=== PATIENT | male | born 1945 | race Caucasian/White ===

== ENCOUNTER → 2018-08-10 12:18 | Outpatient (CLI) | payer SELFPAY ==
--- NOTE | 2018-08-10 12:35 | CT_ITS ---
STUDY: CT CHEST WITHOUT CONTRAST REASON FOR EXAM: Male, 72 years old. Limited chest for calcium scoring ovary. RADIATION DOSAGE (If Supplied By Facility): CTDIvol = ( 12.19 ) mGy, DLP = ( 268.17 ) mGycm TECHNIQUE: Transaxial imaging was performed without the administration of intravenous contrast material. # of Images: 184 Individualized dose optimization techniques were used for this CT. COMPARISON: None. FINDINGS: A fine reticular nodular pattern is seen. A follow-up CT scan in 6 months is recommended for further evaluation. There is no demonstrated pleural abnormality. There are calcifications of the coronary arteries. Minimal degree of anterior pericardial thickening. There are multiple small lymph nodes within the mediastinum, which are normal in size and morphology most compatible with reactive lymph hyperplasia. Normal hilar regions. Normal unenhanced pulmonary arteries. There is atherosclerotic calcification of the aortic arch with tortuosity and elongation of the aortic arch and descending thoracic aorta. There are degenerative changes of the thoracic spine. There is no demonstrated abnormality of the visualized upper abdomen. CT/Limited Chest CT w/CCTA IMPRESSION: Fine reticular nodular pattern is seen in both lungs. A repeat CT scan of the thorax is recommended in 6 months. Electronically Signed: Marcelino Quinones MD at 13:34 EDT Tel [phone], Service support ,
[2018-08-10 12:37] VITALS: BP 150/51; PULSE 51; RESP 16; O2SAT 99; BMI 27.4
--- NOTE | 2018-08-10 19:15 | CCTA_ITS ---
Calcium Scoring Date of Study:: 08/10/18 Coronary Calcium Scoring: Coronary calcium score: 585 Conclusion: Coronary calcium score: 585 Results: The patient underwent high resolution CT imaging of the chest on 08/10/2018 with attention to the coronary arteries. The images were analyzed for the presence and extent of coronary artery calcification using specific coronary calcification quantification software. The patient was reported as tolerating the procedure well with no obvious adverse events. The coronary calcium score was reported at 585. This score, greater than 400, based upon pre-published reference tables, is indicative of extensive plaque burden and the high likelihood of at least one significant coronary stenosis greater than 50%. Impression: Coronary calcium score: 585 This note was generated with [employer] dictation software. It may contain incorrect words, spelling, and punctuation that were not noted in checking the note before signing.
== END ==
PROVIDERS: Family Provider Internal Medicine; PCP Internal Medicine; Referring Provider Internal Medicine; Visit Provider Internal Medicine
DX: E88.81 Metabolic syndrome and other insulin resistance (principal)
CPT/HCPCS: 75571; 76380

== ENCOUNTER → 2018-09-20 06:52 | Outpatient (CLI) | payer MEDICARE, BC, SELFPAY ==
--- NOTE | 2018-09-20 07:16 | ECHOD_ITS ---
Reason For Study: HYPERTENSION Procedure This was a 2D Doppler, Color Flow transthoracic echocardiogram. Exam performed in department. Left Ventricle Normal LV size. Mild concentric left ventricular hypertrophy. Left ventricular systolic function is normal. The estimated ejection fraction is 60 %. Stage 1 diastolic dysfunction. No regional wall motion abnormalities noted. Right Ventricle Normal RV size. Normal systolic function. Atria The left atrium is mildly enlarged. Normal right atrium. Mitral Valve Normal mitral valve. Tricuspid Valve Normal tricuspid valve. Mild tricuspid valve insufficiency. Pulmonary artery systolic pressure is 37 mmHg. Aortic Valve Normal aortic valve. Trisinus/trileaflet aortic valve. Pulmonic Valve Normal pulmonic valve. Great Vessels Normal aortic root. The pulmonary artery is normal size. Pericardium/Pleural No pericardial effusion. MMode/2D Measurements & Calculations LVIDd: 5.2 cm IVSd: 1.3 cm Ao root diam: 3.3 cm LVIDs: 3.6 cm LVPWd: 1.4 cm RVDd: 3.8 cm FS: 29.9 % LAV(MOD-bp): 66.9 ml LA A4 area: 20.7 cm2 LA dimension(2D): 4.2 cm LAV(MOD-bp) Indexed: 34.4 ml/m2 LAV(MOD-sp2): 64.4 ml LAV(MOD-sp4): 65.2 ml RA A4 area: 18.2 cm2 Time Measurements MV dec time: 0.24 sec Doppler Measurements & Calculations MV E max salbador: 75.8 cm/sec Lat Peak E' Salbador: 6.4 cm/sec Med Peak E' Salbador: 8.3 cm/sec MV A max salbador: 93.2 cm/sec E/E' lat: 11.9 E/E' med: 9.1 MV E/A: 0.81 Ao V2 max: 195.8 cm/sec LV V1 max: 152.2 cm/sec PA V2 max: 107.4 cm/sec Ao max P.4 mmHg LV V1 max P.3 mmHg TR max salbador: 285.2 cm/sec TR max P.9 mmHg Interpretation Summary Normal LV size. Left ventricular systolic function is normal. The estimated ejection fraction is 60 %. Stage 1 diastolic dysfunction. Mild concentric left ventricular hypertrophy. Mild tricuspid valve insufficiency. Ordering Physician: Carlitos Tapia Referring Physician: Alana Phelps Performed By: Aleja Key, MICKY, RVT
--- NOTE | 2018-09-20 14:45 | STRESSREP_ITS ---
Stress Test Report Exercise myocardial perfusion stress test. 73-year-old man with a history of abnormal calcium score. Stress protocol: Resting EKG demonstrates normal sinus rhythm with a rate of 63 bpm normal intervals are noted resting blood pressure is 134/62 mmHg. The patient exercised according to regular Umer protocol for total duration of 6 minutes the maximum heart rate attained was 121 bpm which was 81% of maximum predicted heart rate maximum workload was 7 metabolic equivalents. The patient maintained sinus rhythm throughout the recording. At rest there were no ST or T wave changes noted suggest ischemia at peak exercise upsloping EKG changes were noted with normally the criteria for ischemia. Occasional premature ventricular compl exes were noted. The resting blood pressure is 134/62 with a peak blood pressure 184/60 mmHg. There was moderate to severe dyspnea noted with expiratory wheezes peak exercise Myocardial perfusion protocol. 11.4 mCi of technetium 99m sestamibi was injected at rest. The patient exercised according to regular Umer protocol for 6 minutes. At peak exercise 33.7 mCi of technetium 99m sestamibi was injected stress images were obtained stress and rest images were reconstructed and compared in the short axis vertical long horizontal long axis. Gated images were also noted. Perfusion SPECT analysis: Review of the stress images demonstrate normal perfusion pattern noted in most areas of the myocardium the inferior wall on the stress images demonstrated mildly reduced perfusion however. This appeared to normalize on the resting images. The above may be suggestive of mild inferior ischemia present. Gated SPECT analysis: The gated ejection fraction is 57%. Conclusion: Mildly abnormal exercise myocardial perfusion stress test with mild inferior ischemia. Mild functional aerobic impairment noted. Preserved ejection fraction.
== END ==
PROVIDERS: Family Provider Internal Medicine; PCP Internal Medicine; Referring Provider Internal Medicine Cardiovascular Disease; Visit Provider Internal Medicine Cardiovascular Disease
DX: I25.119 Atherosclerotic heart disease of native coronary artery with unspecified angina pectoris (principal); R93.1 Abnormal findings on diagnostic imaging of heart and coronary circulation
CPT/HCPCS: 78452; 93017; 93306; A9500; A4216

== ENCOUNTER 2018-09-27 06:46 | Day surgery (SDC) | payer MEDICARE, BC, SELFPAY ==
[2018-09-01 09:59] VITALS: BMI 30.2
[2018-09-24 08:59] VITALS: BMI 30.2
--- NOTE | 2018-09-24 09:38 | RAD_ITS ---
STUDY: X-RAY CHEST REASON FOR EXAM: Male, 73 years old. Chest pain TECHNIQUE: Frontal and lateral views COMPARISON: None. FINDINGS: The lungs are clear and expanded. There is no demonstrated pleural abnormality. Normal size heart. Normal mediastinum and dwight. Normal visualized pulmonary arteries. Normal visualized aortic arch and descending thoracic aorta. Degenerative changes of the thoracic spine. Normal visualized ribs, clavicles, and shoulders. There is no demonstrated abnormality of the visualized soft tissue structures of the upper abdomen. RAD/Chest PA and Lateral IMPRESSION: Normal x-ray examination of the chest. Electronically Signed: Blayne Marte DO at 8:54 EST Tel [phone], Service support ,
[2018-09-24 10:28] LABS: Absolute Lymphocyte Count 2.02 X10^3/ul (0.83-4.51); Absolute Neutrophil Count 4.4 X10^3/uL (2.0-7.7); Basophil# 0.07 X10^3/uL; Basophil% 0.9 % (0-1); Eosinophil# 0.22 X10^3/uL; Eosinophils% 2.9 % (0-5); Hematocrit 44.2 % (40-54); Hemoglobin 14.4 g/dl (13.0-16.5); Lymphocyte # 2.02 X10^3/ul (4.0); Lymphocyte % 26.7 % (19-41); Mean Corp Hgb Conc 32.6 g/gl (32-36); Mean Corpuscular Hgb 26.9 pg (27.0-32.0); Mean Corpuscular Volume 82.6 fL (80-94); Mean Platelet Vol. 11.1 fl (6.2-12.0); Monocyte# 0.85 X10^3/uL; Monocyte% 11.2 % (0-10); Neutrophil # 4.38 X10^3/uL (2.7-7.7); Platelet Count 214 K/mm3 (150-450); RBC Distribution Width CV 14.3 % (11.6-14.6); RBC Distribution Width SD 43.3 fl (35.1-43.9); Red Blood Count 5.35 M/mm3 (4.6-6.2); White Blood Count 7.6 K/mm3 (4.4-11.0)
[2018-09-24 10:29] LABS: Prothrombin Time (Protime)PT. 12.7 SECONDS (11.7-14.9)
[2018-09-24 10:30] LABS: Partial Thromboplast Time 27.3 Seconds (24.1-36.2)
[2018-09-24 10:32] LABS: POSITIVE COUNT NO; POSITIVE DIFFERENTIAL NO; POSITIVE MORPHOLOGY NO
[2018-09-24 10:39] LABS: Anion Gap 8 (5-15); BUN 24 mg/dL (7-18); BUN/Creat Ratio 17.3 RATIO (10-20); Calcium,Total 9.2 mg/dL (8.5-10.1); Chloride 107 mmol/L (98-107); Creatinine, Serum 1.39 mg/dL (0.70-1.30); EST Glomerular Filtration Rate 54 mL/min (>60); Est Glom Filt Rate - Afr Amer 65 mL/min (>60); Estimated Creatinine Clearance 43.99 ml/min; Glucose 106 mg/dL (74-106); Potassium 4.2 mmol/L (3.5-5.1); Sodium Level 140 mmol/L (136-145)
--- NOTE | 2018-09-27 08:32 | CL.D_ITS ---
Patient Name: VIC LOCKWOOD Study Date: 09/27/2018 Performing: Carlitos Tapia MD Ht: 66 inches 168 cm : 1945 Wt: 187.6 lbs 85 kg Age: 73 Gender: male BSA: 1.95 PROCEDURE(S) PERFORMED HW85-PCF/COR/LV CLINICAL PROFILE AND INDICATIONS Indications: Suspected CAD Heart Failure: None Stress/Imaging Cardiac CTA: Yes Result: 1VDCardiac CTA: 1VD CAD Presentations: No Sxs, no angina. CONCLUSIONS Non obstructive coronary arteries RECOMMENDATIONS Medical therapy DESCRIPTION OF PROCEDURE The patient arrived to the procedure lab. The risks and benefits of the procedure as well as a full d escription of our services here and current unavailability of surgical backup were fully explained to the patient and/or their significant other prior to the catheterization. The Timeout was completed, verifying the correct patient and procedure. The patient's procedural site was prepped and draped in the usual fashion. Local anesthetic was given subcutaneously to right radial region with Lidocaine 2% . Using a modified Seldinger technique, arterial access was obtained via the right radial artery, a 6 Fr sheath was inserted. Left Coronary Artery selective angiography was performed in multiple views u sing a 5 Fr. 4.0 [place] catheter. Right Coronary Artery selective angiography was then performed in mu ltiple views using a 5 Fr. 4.0 [place] catheter. Left Ventriculography was performed in PIERCE projection using a 5 Fr. [place] catheter. LV to AO pullback pressures were then recorded.The arterial sheath was pulled and a TR Band was applied for hemostasis 15cc of air CORONARY ANGIOGRAPHY DOMINANCE: Left Dominant LEFT HEART ASSESSMENT Left Ventricular Ejection Fraction: by LV Gram 55 % Normal LV wall motion Normal Left Ventricular systolic function LEFT MAIN: Angiographically normal LEFT ANTERIOR DECENDING ARTERY: Mild luminal irregularities PROX LAD: Moderate calcification CIRCUMFLEX ARTERY: Mild luminal irregularities RIGHT CORONARY ARTERY: Non-obstructive COMPLICATIONS No Complications PROCEDURE MEDICATIONS Versed 1 mg IV Fentanyl 50 mcg IV Versed 1 mg IV Oxygen: 2 L/min via nasal cannula Heparin diluted in 23cc Heparinized saline. Patient given 10cc IA of this solution. 09/27/2018 08:10: 56 Verapamil 2.5mg, Ntg 100mcgs, 2000 units of Heparin diluted in 23cc Heparinized saline. Patient give n 10cc IA of this solution. 09/27/2018 08:10:56 SUMMARY OF HEMODYNAMIC DATA Time AIR REST ECG 07:08:54 AO 92/49 (68) SA 08:13:02 LV 99/6, 21 08:20:04 LV 102/6, 8 08:20:11 LV 84/10, 12 08:21:40 LV 83/9, 12 08:21:46 LVp 74/5, 13 08:21:51 AOp 87/47 (67) 08:21:57 AO 105/41 (64) 08:22:20 Signed By Carlitos Tapia MD On 09/27/2018 08:31:12 Carlitos Tapia MD
--- OUTSIDE RECORDS SUMMARY | 2018-11-20 04:51 | XMS RPT_ITS ---
:1945 Author Organization OHIP Support Name Relationship Address Phone NADIR LOCKWOOD Unavailable [address] + [place] [address] BONNIEZANA MG Unavailable [address] + [place] [address] R Unavailable Unavailable Unavailable MANDIE, NADIR Unavailable [address] + [place] [address] BONNIE ZANA Unavailable [address] + [place] [address] R Unavailable Unavailable Unavailable MANDIE, NADIR Unavailable [address] + [place] [address] BONNIE ZANA Unavailable [address] + [place] [address] R Unavailable Unavailable Unavailable MANDIE, NADIR Unavailable [address] + [place] [address] BONNIE, ZANA Unavailable [address] + [place] [address] R Unavailable Unavailable Unavailable MANDIE, NADIR Unavailable [address] + [place] [address] BONNIEZANA MG Unavailable [address] + [place] [address] R Unavailable Unavailable Unavailable MANDIE, NADIR Unavailable [address] + [place] [address] BONNIE ZANA Unavailable [address] + [place] [address] R Unavailable Unavailable Unavailable MANDIE, NADIR Unavailable [address] + [place] [address] MANDIE, ZANA Unavailable [address] + [place] [address] R Unavailable Unavailable Unavailable MANDIE, NADIR Unavailable [address] + [place] [address] MANDIE, ZANA Unavailable [address] + [place] [address] R Unavailable Unavailable Unavailable NADIR LOCKWOOD Unavailable [address] + [place] [address] ZANA LOCKWOOD Unavailable [address] + [place] [address] R Unavailable Unavailable Unavailable Care Team Providers Name Role Phone Bonezzi, Alana Attending Unavailable Bonezzi, Alana Referring Unavailable Bonezzi, Alana Primary Care Unavailable Richard Madden Attending Unavailable Bonezzi, Alana Referring Unavailable Bonezzi, Alana Primary Care Unavailable Bonezzi, Alana Consulting Unavailable Kilner, Antonella Attending Unavailable Willie, Carlitos Attending Unavailable Bonezzi, Alana Referring Unavailable Willie, Carlitos Attending Unavailable Willie, Carlitos Referring Unavailable Bonezzi, Alana Primary Care Unavailable Willie, Carlitos Attending Unavailable Willie, Carlitos Referring Unavailable Bonezzi, Alana Primary Care Unavailable Willie, Carlitos Consulting Unavailable [place], [place] Attending Unavailable Willie, [place] Referring Unavailable Bonezzi, Alana Primary Care Unavailable Willie, Carlitos Attending Unavailable Bonezzi, Alana Referring Unavailable Kilner, Antonella Attending Unavailable PROBLEMS PROBLEMS DATE TYPE CONDITION / CODE ATTENDING STATUS SOURCE 10/01/2018 Unknown I25.119 - Willie, [place] Active [place] Atherosclerotic heart [facility] disease of [facility] coronary artery with Repository unspecified angina pectoris / I25.119(ICD-10) 09/20/2018 Unknown R93.1 - Abnormal Willie, Carlitos Active [place] findings on [facility] diagnostic imaging of [facility] heart and coronary Repository circulation / R93.1(ICD-10) 09/01/2018 Unknown I10 - Essential Willie, Carlitos Active [place] (primary) Community hypertension / Hospital I10(ICD-10) Repository 09/01/2018 Unknown E78.5 - [place], Carlitos Active [place] Hyperlipidemia, Community unspecified / Hospital E78.5(ICD-10) Repository PROCEDURES PROCEDURES No Procedure Records FoundRESULTS RESULTS OFFICE VISIT REPORT Observed: 09/24/2018 Status: F Source: [place] 10:[address] [facility] REPOSITORY [facility] Services 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 Allergies No Known Allergies Allergy (Verified 09/01/18 09:59) Medications Fenofibrate [Tricor] 145 mg PO DAILY 12/30/15 [History Confirmed 09/24/18] Pravastatin [Pravachol] 40 mg PO QHS 12/30/15 [History Confirmed 09/24/18] Tadalafil [Cialis] 20 mg PO PRN PRN 12/30/15 [History Confirmed 09/24/18] amlodipine 10 mg tablet 10 mg PO DAILY 08/31/18 [History Confirmed 09/24/18] losartan 100 mg tablet 100 mg PO DAILY 08/31/18 [History Confirmed 09/24/18] thiamine HCl (vitamin B1) 100 mg tablet 100 mg PO DAILY 08/31/18 [History Confirmed 09/24/18] hydrochlorothiazide 12.5 mg capsule 12.5 mg PO DAILY 09/01/18 [History Confirmed 09/24/18] aspirin 81 mg tablet,delayed release 81 mg PO DAILY 09/24/18 [History Confirmed 09/24/18] clopidogrel 75 mg tablet 75 mg PO DAILY #30 tab 09/24/18 [Rx Confirmed 09/24/18] Assessment AND Plan Medications New: Nursing Note Cardiac catheterization teaching completed and instructions reviewed. Labs and CXR completed. 09/24/18 1010 <Electronically signed by Vic FARIAS> Date Vic FARIAS Cosigner Signature: Date (if applicable) CC: CHEST PA AND LATERAL Observed: 09/24/2018 Status: F Source: [place] 9:[address] [facility] REPOSITORY [facility] Imaging Services [address] [place] [address] Chest PA and Lateral MR#: [id number] Acct: [id number] Name: VIC LOCKWOOD Rep #: [id number] : 1945 M 73 From: Blayne Marte DO PCP: Alana Phelps MD Status: [facility] Study: Chest PA and Lateral Date of Exam: 09/24/18 Exam# [id number] Ordering Dr: Carlitos Tapia MD STUDY: X-RAY CHEST REASON FOR EXAM: Male, 73 years old. Chest pain TECHNIQUE: Frontal and lateral views COMPARISON: None. FINDINGS: The lungs are clear and expanded. There is no demonstrated pleural abnormality. Normal size heart. Normal mediastinum and dwight. Normal visualized pulmonary arteries. Normal visualized aortic arch and descending thoracic aorta. Degenerative changes of the thoracic spine. Normal visualized ribs, clavicles, and shoulders. There is no demonstrated abnormality of the visualized soft tissue structures of the upper abdomen. RAD/Chest PA and Lateral IMPRESSION: Normal x-ray examination of the chest. 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 REPOSITORY TYPE CODE TESTS RESULT OUT OF RANGE REFERENCE UNITS LAB L100.1000 4.4-11.0 K/mm3 Normal WBC 7.6 LAB L100.1200 4.6-6.2 M/mm3 Normal RBC 5.35 LAB L100.1300 13.0-16.5 g/dl Normal HGB 14.4 LAB L100.1400 40-54 % Normal HCT 44.2 LAB L100.1500 80-94 fL Normal MCV 82.6 LAB L100.1600 27.0-32.0 pg Low MCH 26.9 LAB L100.1700 32-36 g/gl Normal MCHC 32.6 LAB L100.1810 11.6-14.6 % Normal RDW CV 14.3 LAB L100.1820 35.1-43.9 fl Normal RDW SD 43.3 LAB L100.1900 150-450 K/mm3 Normal PLT 214 LAB L100.2000 6.2-12.0 fl Normal MPV 11.1 LAB L100.2100 47-70 % Normal NEUT% 58.0 LAB L100.2200 19-41 % Normal LY% 26.7 LAB L100.2300 0-10 % High MONO% 11.2 LAB L100.2400 0-5 % Normal EO% 2.9 LAB L100.2500 0-1 % Normal BASO% 0.9 LAB L100.2550 0.0-0.9 % Normal IM GRAN % 0.300 Result Comment: IG% - Immature Granulocytes (promyelocytes, myelocytes and metamyelocytes) > 1% indicates that a LEFT SHIFT is Present. LAB L100.2620 2.0-7.7 X10 3/uL Normal Absolute Neut 4.4 LAB L100.2720 0.83-4.51 X10 3/ul Normal Absolute Lymph 2.02 Performed By: #### L100.0100 #### [facility] Jennifer [facility]. [place], [place], [id number] BASIC METABOLIC Collected: 09/24/2018 Status: F Source: [place] PROFILE (BMP) 9:[address] [facility] REPOSITORY TYPE CODE TESTS RESULT OUT OF RANGE REFERENCE UNITS LAB L501.0100 74-106 mg/dL Normal GLU 106 Result Comment: Fasting Glucose result from 100 to 125 mg/dL suggests IMPAIRED HOMEOSTASIS per A.D.A. criteria. Please note revised GLUCOSE reference range effective 2017. LAB L501.1000 7-18 mg/dL High BUN 24 LAB L501.1100 0.70-1.30 mg/dL High CREAT,SERUM 1.39 Result Comment: The validity of the calculated GFR AND GFRAA in patients over 70 years has not been determined. Clinical correlation is essential. LAB L501.1110 >60 mL/min Low EST GFR 54 Result Comment: Non- GFR Calc LAB L501.1115 >60 mL/min Normal EST GFR - AA 65 Result Comment: GFR Calc LAB L501.1255 ml/min Normal Estimated CRCL 43.99 LAB L501.1300 10-20 RATIO Normal BUN/CRE 17.3 LAB L501.2200 8.5-10 mg/dL Normal .1 CA 9.2 LAB L501.5300 136-14 mmol/L Normal 5 NA 140 LAB L501.5600 3.5-5. mmol/L Normal 1 K 4.2 LAB L501.5900 98-107 mmol/L Normal CL 107 LAB L501.6100 21.0-3 mmol/L Normal 2.0 CO2 25.0 LAB L501.6200 5-15 Normal GAP 8 Performed By: #### L500.2500 #### [facility] [address] [place], [address] PROTHROMBIN TIME W/INR Collected: 09/24/2018 Status: F Source: [place] 9:[address] [facility] REPOSITORY TYPE CODE TESTS RESULT OUT OF RANGE REFERENCE UNITS LAB L300.4150 11.7-14.9 SECONDS Normal PROTIME 12.7 LAB L300.4200 Normal INR 1.0 Performed By: #### L300.3900, L300.4310 #### [facility] [address] [place], [address] PARTIAL THROMBOPLAST Collected: 09/24/2018 Status: F Source: [place] TIME 9:[address] [facility] REPOSITORY TYPE CODE TESTS RESULT OUT OF RANGE REFERENCE UNITS LAB L300.4310 24.1-36.2 Seconds Normal PTT 27.3 Performed By: #### L300.3900, L300.4310 #### [facility] [address] [place], [address] STRESS REPORT Observed: 09/20/2018 Status: F Source: [place] 2:[address] [facility] REPOSITORY [facility] Cardiovascular Services [address] [place] [address] MR#: [id number] Acct: [id number] Name: VIC LOCKWOOD Rep #: [id number] : 1945 73 From: Carlitos Tapia MD Primary Care: Alana Phelps MD Status: REG CLI Ordering Dr: Dudley: Keon Ferrera Stress Test Report Exercise myocardial perfusion stress test. 73-year-old man with a history of abnormal calcium score. Stress protocol: Resting EKG demonstrates normal sinus rhythm with a rate of 63 bpm normal intervals are noted resting blood pressure is 134/62 mmHg. The patient exercised according to regular Umer protocol for total duration of 6 minutes the maximum heart rate attained was 121 bpm which was 81% of maximum predicted heart rate maximum workload was 7 metabolic equivalents. The patient maintained sinus rhythm throughout the recording. At rest there were no ST or T wave changes noted suggest ischemia at peak exercise upsloping EKG changes were noted with normally the criteria for ischemia. Occasional premature ventricular complexes were noted. The resting blood pressure is 134/62 with a peak blood pressure 184/60 mmHg. There was moderate to severe dyspnea noted with expiratory wheezes peak exercise Myocardial perfusion protocol. 11.4 mCi of technetium 99m sestamibi was injected at rest. The patient exercised according to regular Umer protocol for 6 minutes. At peak exercise 33.7 mCi of technetium 99m sestamibi was injected stress images were obtained stress and rest images were reconstructed and compared in the short axis vertical long horizontal long axis. Gated images were also noted. Perfusion SPECT analysis: Review of the stress images demonstrate normal perfusion pattern noted in most areas of the myocardium the inferior wall on the stress images demonstrated mildly reduced perfusion however. This appeared to normalize on the resting images. The above may be suggestive of mild inferior ischemia present. Gated SPECT analysis: The gated ejection fraction is 57%. Conclusion: Mildly abnormal exercise myocardial perfusion stress test with mild inferior ischemia. Mild functional aerobic impairment noted. Preserved ejection fraction. 09/20/18 1446 <Electronically signed by Carlitos Tapia MD> Date Carlitos Tapia MD CC: Carlitos Tapia MD; Alana Phelps MD Date Dictated: 09/20/18 1440 Date Transcribed: 09/20/18 144 Machine Shop Worker: [place] Signed ECHOCARDIOGRAM COMPLETE Observed: 09/20/2018 Status: F Source: [place] 2:[address] [facility] REPOSITORY [facility] [place] [address] Echo Complete 09/20/18 0945 MR#: [id number] Acct: [id number] Name: VIC LOCKWOOD Rep #: [id number] : 1945 73 From: Carlitos Tapia MD Attending Dr: Carlitos Tapia MD Status: REG CLI Ordering Dr: Carlitos Tapia MD Date: 09/20/18 Location: [facility] Sex: M C Admitted: Reason For Study: HYPERTENSION Procedure This was a 2D Doppler, Color Flow transthoracic echocardiogram. Exam performed in department. Left Ventricle Normal LV size. Mild concentric left ventricular hypertrophy. Left ventricular systolic function is normal. The estimated ejection fraction is 60 %. Stage 1 diastolic dysfunction. No regional wall motion abnormalities noted. Right Ventricle Normal RV size. Normal systolic function. Atria The left atrium is mildly enlarged. Normal right atrium. Mitral Valve Normal mitral valve. Tricuspid Valve Normal tricuspid valve. Mild tricuspid valve insufficiency. Pulmonary artery systolic pressure is 37 mmHg. Aortic Valve Normal aortic valve. Trisinus/trileaflet aortic valve. Pulmonic Valve Normal pulmonic valve. Great Vessels Normal aortic root. The pulmonary artery is normal size. Pericardium/Pleural No pericardial effusion. MMode/2D Measurements AND Calculations LVIDd: 5.2 cm IVSd: 1.3 cm Ao root diam: 3.3 cm LVIDs: 3.6 cm LVPWd: 1.4 cm RVDd: 3.8 cm FS: 29.9 % LAV(MOD-bp): 66.9 ml LA A4 area: 20.7 cm2 LA dimension(2D): 4.2 cm LAV(MOD-bp) Indexed: 34.4 ml/m2 LAV(MOD-sp2): 64.4 ml LAV(MOD-sp4): 65.2 ml RA A4 area: 18.2 cm2 Time Measurements MV dec time: 0.24 sec Doppler Measurements AND Calculations MV E max salbador: 75.8 cm/sec Lat Peak E' Salbador: 6.4 cm/sec Med Peak E' Salbador: 8.3 cm/sec MV A max salbador: 93.2 cm/sec E/E' lat: 11.9 E/E' med: 9.1 MV E/A: 0.81 Ao V2 max: 195.8 cm/sec LV V1 max: 152.2 cm/sec PA V2 max: 107.4 cm/sec Ao max P.4 mmHg LV V1 max P.3 mmHg TR max salbaodr: 285.2 cm/sec TR max P.9 mmHg Interpretation Summary Normal LV size. Left ventricular systolic function is normal. The estimated ejection fraction is 60 %. Stage 1 diastolic dysfunction. Mild concentric left ventricular hypertrophy. Mild tricuspid valve insufficiency. 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 REPOSITORY [facility] [facility] [address] [place] [address]. [address] [place] [address] OFFICE VISIT Date of Service: 09/01/18 MR#: [id number] Acct: [id number] Name: VIC LOCKWOOD Rep #: [id number] : 1945 Provider: Carlitos Tapia MD Age/Sex: 73/M [place] [facility] [place]: Signed HPI HPI Chief Complaint: Initial evaluation. Details: VIC LOCKWOOD, is a 73 M who presents to the office today for an initial evaluation. He is a gentleman with a history of coronary artery risk factors with hypertension, hyperlipidemia, previous tobacco use. He apparently had seen you for a physical and underwent a CT scan of his chest which had demonstrated some calcification and a coronary CTA was performed which demonstrated significant calcification along the LAD distribution. He is denied any chest pain or shortness of breath or paroxysmal nocturnal dyspnea pedal edema he has had no neck arm or jaw discomfort to suggest angina no dizziness or diaphoresis no near syncope or syncope. His total calcium score was noted to be 585. His physical exam today demonstrates clear lung kuhn regular rate and rhythm and no pedal edema. His electrocardiogram performed in the office demonstrates normal sinus rhythm with no acute changes. Intake Vital Signs09/01/18 Height 5 ft 6 in 09/01/18 Weight: 187 lb 09/01/18 Body Mass Index (BMI) 30.2 09/01/18 Blood Pressure 118/56 L 09/01/18 Respiratory Rate 18 09/01/18 Pulse Rate 74 Intake Visit Reasons: PCP ref'd for abn CCTA Allergies No Known Allergies Allergy (Verified 09/01/18 09:59) Medications Fenofibrate [Tricor] 145 mg PO DAILY 12/30/15 [History Confirmed 09/01/18] Pravastatin [Pravachol] 40 mg PO QHS 12/30/15 [History Confirmed 09/01/18] Tadalafil [Cialis] 20 mg PO PRN PRN 12/30/15 [History Confirmed 09/01/18] amlodipine 10 mg tablet 10 mg PO DAILY 08/31/18 [History Confirmed 09/01/18] losartan 100 mg tablet 100 mg PO DAILY 08/31/18 [History Confirmed 09/01/18] thiamine HCl (vitamin B1) 100 mg tablet 100 mg PO DAILY 08/31/18 [History Confirmed 09/01/18] hydrochlorothiazide 12.5 mg capsule 12.5 mg PO DAILY 09/01/18 [History Confirmed 09/01/18] [facility] Medical History Atherosclerosis of coronary artery of [place] heart with angina pectoris (Chronic) Essential (primary) hypertension (Chronic) Hyperlipidemia (Chronic) BPH (benign prostatic hyperplasia) (Chronic) COPD (chronic obstructive pulmonary disease) (Chronic) Erectile dysfunction (Chronic) Osteoarthritis (Chronic) Surgical History History of right knee surgery (Resolved) History of transurethral resection of prostate (Resolved 2015) Family History Mother Hypertension Father Myocardial infarction [place] 70's Social History Smoking Status: Former smoker quit date: 10/26/92 pack-years: 20 ROS Const Const: Negative for fatigue, weakness, difficulty sleeping, frequent falls, excessive sweating or headache(s) Eyes Eyes: Negative for loss of peripheral vision, transient loss of vision, blurry vision, tunnel vision or double vision ENT ENT: Negative for headache(s), dizziness, Nosebleed/epistaxis or balance problems Cardio Chest Pain: No Palpitations: No Edema: None Muscle aches with walking: None Resp Respiratory: Positive for SOB with activity (Chronic SOB with activity); negative for SOB at rest, SOB orthopnea\SOB lying down, paroxysmal nocturnal dyspnea or Cough GI GI: Negative nausea, heartburn, black,tarry stools or vomiting : Negative for hematuria Musc Musc: Negative for balance problems, muscle aches/ myalgia, muscle weakness or joint pain Skin Skin: Negative non-healing lesions, unusual bruising or rash Neuro Neuro: Positive for other (Numbness in fingers on left hand); negative for weakness, frequent falls, headache(s), blurry vision, double vision, dizziness, lightheadedness, orthostatic symptoms, near syncope, syncope or lack of coordination Tulio Hematologic/Lymphatic: Negative for easy bruising or easy bleeding Endo Endo: Negative for fatigue, excessive sweating or increased thirst/drinking Psych Psych: Negative for anxiety or depression Allergy Allergy/Immunology: Negative for hives, Negative for rash Cardiology Exam Const Appearance: cooperative, healthy appearing, well developed, well groomed and no acute distress Nutritional Appearance: well nourished and average body habitus Orientation: alert, awake and oriented x3 Head Head: normal to inspection, normocephalic and atraumatic Ears: hearing grossly normal bilaterally and external ears normal Nose: external nose normal, nasal mucous membranes and turbinates normal, nares normal, septum normal, no nasal discharge Face and Sinus: face symmetric Mouth: oral mucosae normal, tongue normal, oropharynx normal and moist mucous membranes Teeth and gingiva: dentition normal Throat: posterior oropharynx normal, tonsils normal and uvula midline Eyes General: appearance normal, both eyes and all related structures Eyelids: eyelids normal Conjunctivae: conjunctivae normal Pupils: PERRL, normal by confrontation and accommodation normal EOM: EOM intact bilaterally Neck Neck: normal visual inspection, trachea midline and no JVD JVD: +5 Carotids: normal carotid upstroke and bounding pulses Chest Chest inspection: normal inspection of the chest, symmetric chest movement and normal respiratory effort Auscultation: Bilateral: Clear to Auscultation Cardio Palpation: normal PMI Rate: regular rate Rhythm: regular rhythm Heart sounds: S1 normal, S2 normal and normal, physiologic split S2; negative rub, gallop or murmur GI GI: normal to inspection, soft, no hepatosplenomegaly and bowel sounds present Neuro General: alert, awake, oriented x3, no focal sensory deficit, gait normal and moves all extremities Skin Skin: no rashes or lesions noted Extremities Pulses: Normal: Right Femoral Pulse, Left Femoral Pulse, Right Dorsalis Pedis Pulse, Left Dorsalis Pedis Pulse, Right Posterior Tibial Pulse, Left Posterior Tibial Pulse, Right Radial Pulse, Left Radial Pulse Lower Extremity Edema: None: Bilateral Musculoskel Musculoskeletal: No joint tenderness Psych Psychological: normal affect Assessment AND Plan 1. Abnormal computed tomography angiography of heart R93.1 Plan He has evidence of an abnormal coronary calcium CT scan. As he remains asymptomatic I think the prudent way to work this up will be to obtain an exercise myocardial perfusion stress test as well as an echocardiogram to assess his left ventricular function. Depending on the findings further recommendations will be made. In the meantime he should continue with his current aggressive risk factor modification with his blood pressures using amlodipine hydrochlorothiazide and losartan. You do remember that his high sensitivity CRP was less than 2. Orders Orders: 2. Essential (primary) hypertension I10 Plan His blood pressure appears to be under good control on the current medical therapy with the losartan amlodipine and hydrochlorothiazide and no other changes will be made. 3. Hyperlipidemia E78.5 Plan He does have a history of hyperlipidemia on statin as well as fibrillate. His most recent lipid profile performed through your outfit demonstrated a total cholesterol of 184, LDL of 110, and HDL of 43. No changes will be made at this particular time. Thank you for allowing me to participate in the care of your patient. Please don't hesitate to call if any issues arise 4. 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) Coding Level of Care Code Off vis,new,level 4 Diagnoses Abnormal computed tomography angiography of heart R93.1 Essential (primary) hypertension I10 Hyperlipidemia E78.5 Atherosclerosis of coronary artery of [place] heart with angina pectoris I25.119 Coding Level of Care Code Off vis,new,level 4 Diagnoses Abnormal computed tomography angiography of heart R93.1 Essential (primary) hypertension I10 Hyperlipidemia E78.5 Atherosclerosis of coronary artery of [place] heart with angina pectoris I25.119 09/01/18 1028 <Electronically signed by Carlitos Tapia MD> Date Carlitos Tapia MD Cosigner Signature: Date (if applicable) CC: Alana Phelps MD LIMITED CHEST CT Observed: 08/10/2018 Status: F Source: [place] W/CCTA 12:[address] [facility] REPOSITORY [facility] Imaging Services [address] [place] [address] w/CCTA MR#: [id number] Acct: [id number] Name: VIC LOCKWOOD Rep #: [id number] : 1945 M 72 From: Marcelino Quinones MD PCP: Alana Phelps MD Status: REG CLI Study: Limited Chest CT w/CCTA Date of Exam: 08/10/18 Exam# [id number] Ordering Dr: Alana Phelps MD STUDY: CT CHEST WITHOUT CONTRAST REASON FOR EXAM: Male, 72 years old. Limited chest for calcium scoring ovary. RADIATION DOSAGE (If Supplied By Facility): CTDIvol = ( 12.19 ) mGy, DLP = ( 268.17 ) mGycm TECHNIQUE: Transaxial imaging was performed without the administration of intravenous contrast material. # of Images: 184 Individualized dose optimization techniques were used for this CT. COMPARISON: None. FINDINGS: A fine reticular nodular pattern is seen. A follow-up CT scan in 6 months is recommended for further evaluation. There is no demonstrated pleural abnormality. There are calcifications of the coronary arteries. Minimal degree of anterior pericardial thickening. There are multiple small lymph nodes within the mediastinum, which are normal in size and morphology most compatible with reactive lymph hyperplasia. Normal hilar regions. Normal unenhanced pulmonary arteries. There is atherosclerotic calcification of the aortic arch with tortuosity and elongation of the aortic arch and descending thoracic aorta. There are degenerative changes of the thoracic spine. There is no demonstrated abnormality of the visualized upper abdomen. CT/Limited Chest CT w/CCTA IMPRESSION: Fine reticular nodular pattern is seen in both lungs. A repeat CT scan of the thorax is recommended in 6 months. 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 ALLERGIES ALLERGIES DATE TYPE / CODE NAME / CODE REACTION SEVERITY SOURCE 09/01/2018 Drug No Known Unknown Abram [facility] Allergy/4160 Allergies/F00 Hospital 20796(SNOMED [id number](RXNOR Repository CT) M) ENCOUNTERS ENCOUNTERS ADMIT/DISCHARGE ACCOUNT ADMITTING ENCOUNTER LOCATION SOURCE NUMBER CLASS 09/27/2018 [id number] Ambulatory BMSBuilding:B Bertha 9 MS.Man [facility] Repository 09/27/2018/ [id number] Ambulatory Bertha Abram 8 4 [facility] ing:[facility] Repository 09/24/2018/ [id number] Ambulatory BMSBuilding:B Bertha 8 4 [place] Repository 09/20/2018 [id number] Ambulatory BMSBuilding:B Abram 7 MS.CF.[facility] Repository 09/20/2018 [id number] Ambulatory Abram Abram 3 [facility] ing:[facility] Repository 09/01/2018/ [id number] Ambulatory BMSBuilding:B Abram 8 0 [place] [facility] Repository 08/31/2018 [id number] Ambulatory BMSBuilding:B Bertha 7 [place] [facility] Repository 08/10/2018 [id number] Ambulatory BMSBuilding:B Abram 1 MS.[facility] Repository 08/10/2018 [id number] Ambulatory Bertha Abram 5 [facility] ing:CT Repository PAYERS PAYERS ENCOUNTER GUARANTOR PAYER SUBSCRIBER SOURCE 09/27/2018 VIC R Primary VIC R Bertha [id number] Insurance:MEDICARE DOUGLASDOB: Community ZAINAB PART A [place] [id number] Number: Repository [id number]: 330 [id number] [phone] (HP) Date:2018-09-27 09/27/2018 Secondary VIC R Bertha Insurance:ANTHEMPolic DOUGLASDOB: Community y Number: [id number] Repository Date:0706-11-33SH [id number] [place] [address] 42040VS: 09/27/2018 Tertiary NOT GIVENUNK Bertha Insurance:SELF PAY [facility] Number: Effective Repository Date:2018-09-27 09/27/2018 VIC R Primary VIC R Abram [id number] Insurance:MEDICARE DOUGLASDOB: [facility] ZAINAB PART A [address] Number: Repository [id number]: 330 [id number] [phone] (HP) Date:2018-09-21 09/27/2018 Secondary VIC R Abram Insurance:ANTHEMPolic DOUGLASDOB: Community y Number: [id number] Repository Date:3471-69-08CC [id number] [place] [address] 46085FC: 09/27/2018 Tertiary NOT GIVENUNK Bertha Insurance:SELF PAY [facility] Number: Effective Repository Date:2018-09-21 09/24/2018 VIC R Primary VIC R Abram [id number] Insurance:MEDICARE DOUGLASDOB: [facility] ZAINAB PART A [place] [id number] Number: Repository [id number]: 330 [id number] [phone] (HP) Date:2018-09-21 09/24/2018 Secondary VIC R Abram Insurance:ANTHEMPolic DOUGLASDOB: Community y Number: [id number] Repository Date:9150-87-41LJ [address] [place] [address] 32677WY: 09/24/2018 Tertiary NOT GIVENUNK Abram Insurance:SELF PAY [facility]: Effective Repository Date:2018-09-24 09/20/2018 VIC R Primary VIC R Abram [id number] Insurance:MEDICARE DOUGLASDOB: Community ZAINAB PART A [facility] [id number] Number: Repository [id number]: [phone] [id number] [phone] (HP) Date:2018-09-01 09/20/2018 Secondary VIC R Bertha Insurance:ANTHEMPolic DOUGLASDOB: Community y Number: [id number] Repository Date:1779-34-26VT [address] [place] [address] 37175KJ: 09/20/2018 Tertiary NOT GIVENUNK Abram Insurance:SELF PAY [facility] Number: Effective Repository Date:2018-09-20 09/20/2018 VIC R Primary VIC R Bertha [id number] Insurance:MEDICARE DOUGLASDOB: Community ZAINAB PART A [facility] [id number] Number: Repository [id number]: [phone] [id number] [phone] (HP) Date:2018-09-01 09/20/2018 Secondary VIC R Bertha Insurance:ANTHEMPolic DOUGLASDOB: Community y Number: [id number] Repository Date:9043-43-44HY [address] [place] [address] 71730BO: 09/20/2018 Tertiary NOT GIVENUNK Bertha Insurance:SELF PAY [facility] Number: Effective Repository Date:2018-09-01 09/01/2018 VIC R Primary VIC R Abram [id number] Insurance:MEDICARE DOUGLASDOB: Community ZAINAB PART A [place] [id number] Number: Repository [id number]: [phone] [id number] [phone] (HP) Date:2018-08-18 09/01/2018 Secondary VIC R Abram Insurance:ANTHEMPolic DOUGLASDOB: Community y Number: [id number] Repository Date:1666-32-73UW [address] [place] [address] 33655KD: 09/01/2018 Tertiary NOT GIVENUNK Abram Insurance:SELF PAY [facility] Number: Effective Repository Date:2018-08-18 08/31/2018 VIC R Primary VIC R Abram [id number] Insurance:MEDICARE D[facility]GLASDOB: [facility] [id number] Number: Repository [id number]: 330 [id number] [phone] (HP) Date:2018-08-31 08/31/2018 Secondary VIC R Bertha Insurance:ANTHEMPolic DOUGLASDOB: Community y Number: [id number] Repository Date:9296-83-72BI [id number] [place] [address] 48757FM: 08/31/2018 Tertiary NOT GIVENUNK Bertha Insurance:SELF PAY [facility] Number: Effective Repository Date:2018-08-31 08/10/2018 VIC R Primary [facility] VIC R Abram [id number] PACKAGE PLANPolicy DOUGLASDOB: [facility] Number: [id number] [id number] Repository [address]Luh: (330) Date:2018-07-27 [phone] (HP) 08/10/2018 Secondary NOT GIVENUNK Bertha Insurance:SELF PAY [facility] Number: Effective Repository Date:2018-08-10 08/10/2018 VIC R Primary Insurance:[facility] VIC R Abram [id number] PACKAGE PLANPolicy DOUGLASDOB: [facility] Number: [id number], [place] [id number] Repository [address]Gjo: (330) Date:2018-07-27 [phone] (HP) 08/10/2018 Secondary NOT GIVENUNK Abram Insurance:SELF PAY [facility] Number: Effective Repository Date:2018-07-27
== END 2018-09-27 11:21 | disposition home or self-care (01) ==
LOC: CLSP 06:48
PROVIDERS: Family Provider Internal Medicine; PCP Internal Medicine; Referring Provider Internal Medicine Cardiovascular Disease; Visit Provider Internal Medicine Cardiovascular Disease
DX: I25.119 Atherosclerotic heart disease of native coronary artery with unspecified angina pectoris (principal); R93.1 Abnormal findings on diagnostic imaging of heart and coronary circulation; I10 Essential (primary) hypertension; E78.5 Hyperlipidemia, unspecified; M19.90 Unspecified osteoarthritis, unspecified site; Z87.891 Personal history of nicotine dependence; Z79.899 Other long term (current) drug therapy
CPT/HCPCS: 36415; 71046; 80048; 85025; 85610; 85730; 93458; 99152; 99153; J7040; Q9967; C1769; C1894

== ENCOUNTER 2018-12-07 21:29 | Emergency (ER) | payer OTHER, MEDICARE, BC, SELFPAY ==
[2018-12-07 21:30] VITALS: BP 146/60; PULSE 82; RESP 14; TEMP 36.8; O2SAT 97; BMI 28.5
--- NOTE | 2018-12-07 21:34 | RAD_ITS ---
STUDY: X-RAY - LUMBAR SPINE REASON FOR EXAM: Male, 73 years old. Pain status post fall. TECHNIQUE: 3 view(s) of the lumbar spine were obtained. COMPARISON: None FINDINGS: Normal lumbar lordosis. There is no substantial scoliosis. Lumbar alignment is normal, with no fracture or subluxation. Vertebral body heights are well-maintained. Disc space narrowing is mild at L4-5 and moderate at L5-S1. Sclerotic endplate changes are noted at L5-S1. The soft tissue structures are unremarkable. RAD/Lumbar Spine 2 or 3 Views IMPRESSION: 1. No evidence of trauma. 2. Mild degenerative disc changes. Electronically Signed: Susan Bravo MD at 22:44 EST Tel , Service support ,
--- NOTE | 2018-12-07 21:45 | RAD_ITS ---
STUDY: X-RAY - UNILATERAL RIBS ( LEFT ) WITH CHEST REASON FOR EXAM: Male, 73 years old. Pain status post fall. TECHNIQUE - RIBS: 4 view(s) of the ribs. TECHNIQUE - CHEST: 1 COMPARISON: Chest x-ray 09/24/2018. FINDINGS - RIBS: Normal visualized ribs without a demonstrated fracture. FINDINGS - CHEST: Heart size is normal. Hilar and mediastinal shadows are unremarkable. There is no pleural effusion, pulmonary consolidation, or pneumothorax. RAD/Ribs Uni Min 3V w/PA Chest IMPRESSION: RIBS: Normal x-ray examination of the ribs. CHEST: Normal x-ray examination of the chest. Electronically Signed: Susan Bravo MD at 22:42 EST Tel , Service support ,
--- NOTE | 2018-12-07 23:16 | RAD_ITS ---
STUDY: X-RAY - THORACIC SPINE REASON FOR EXAM: Male, 73 years old. Fell 4 feet onto left side. Lower back and left rib pain. TECHNIQUE: 3 view(s) of the thoracic spine were obtained. COMPARISON: None. FINDINGS: Normal kyphosis of the thoracic spine. There is no substantial scoliosis. There is multilevel endplate spondylosis of the thoracic vertebrae. There is multilevel disc space narrowing of the thoracic spine. There is no evidence of acute fracture or loss of vertebral axial height. The soft tissue structures are unremarkable. RAD/Thoracic Spine 3 Views IMPRESSION: Generative changes of the thoracic spine without acute abnormality. Electronically Signed: Donavan Foy DO at 23:52 EST Tel [phone], Service support ,
--- NOTE | 2018-12-07 23:16 | CT_ITS ---
STUDY: CT CERVICAL SPINE WITHOUT CONTRAST REASON FOR EXAM: Male, 73 years old. Is post fall 4 feet RADIATION DOSAGE (If Supplied By Facility): CTDIvol = ( 26.38 ) mGy, DLP = ( 534.01 ) mGycm TECHNIQUE: High resolution transaxial imaging was performed without contrast material. Sagittal and coronal images were reconstructed. Individualized dose optimization techniques were used for this CT. COMPARISON: None FINDINGS: Normal craniovertebral junction. There are degenerative changes of the anterior atlantoaxial articulation. Normal odontoid process. Normal cervical lordosis. There is multilevel spondylosis. C2-3: There is facet arthropathy right greater than left with mild right neural foramina narrowing or significant central stenosis. C3-4: There is disc space narrowing right greater than left facet arthropathy moderate right neural foramina narrowing mild left neural foraminal narrowing minimal central stenosis. C4-5: There is disc narrowing spondylosis facet arthropathy. There is mild to moderate neural foramina narrowing minimal central stenosis. C5-6: Facet arthropathy with mild neural foraminal narrowing minimal central stenosis. C6-7: There is disc space narrowing broad disc osteophyte moderate neural foramina narrowing minimal central stenosis C7-T1: There is spondylosis, without neural foraminal narrowing and central stenosis. There is atherosclerotic disease of the visualized carotid arteries. CT/Spine Cervical without Contras IMPRESSION: Degenerative change of the cervical spine. No visualized fracture. Electronically Signed: Anna Talavera MD at 0:45 EST Tel , Service support ,
--- NOTE | 2018-12-07 23:16 | CT_ITS ---
We are attempting to reach Shreyas Rachel MD to discuss findings. An addendum with communication details will be sent when the communication is complete. STUDY: CT BRAIN WITHOUT CONTRAST REASON FOR EXAM: Male, 73 years old. Pelvis post fall RADIATION DOSAGE (If Supplied By Facility): CTDIvol = ( 60.81 ) mGy, DLP = ( 1135.50 ) mGycm TECHNIQUE: Transaxial CT imaging of the brain was performed without administration of intravenous contrast material. Individualized dose optimization techniques were used for this CT. COMPARISON: None. FINDINGS: Normal soft tissue structures. Normal calvarium. There is mild cerebral atrophy with widening of the extra-axial spaces and ventricular dilatation. There are areas of decreased attenuation within the white matter tracts of the supratentorial brain, consistent with microvascular disease changes. Normal basal ganglia and thalami. Normal brainstem. There is focal hyperdensity within the left side of the cerebellum suspicious for focal hemorrhage. There is minimal adjacent edema. There is calcification of the cavernous carotid arteries. There is no intracranial hemorrhage. There are no findings of an acute ischemic infarction. Normal visualized paranasal sinuses. CT/Brain/Head without Contrast IMPRESSION: Subtle focal hyperdensity within the left side cerebellum suspicious small parenchymal hemorrhage image #7 axial views measuring 7 mm.. Electronically Signed: Anna Talavera MD at 0:00 EST Tel , Service support ,
--- NOTE | 2018-12-08 00:35 | ED.VISSUMM ---
- ER Visit Summary Date of Service: 12/08/18 Chief Complaint: Fall History of Present Illness: The patient is a 73 M who presents after a fall. About 9 hours before presentation he fell off of a stepladder. He estimates that he was 4 feet up. He fell back hitting his mid lower back and did hit his head as well. He denies any loss of consciousness. He denies headache. He is on baby aspirin but no other anticoagulation. He also complains of left rib pain. No shortness of breath although it is painful to take a deep breath. No extremity injuries. Physical Examination: Afebrile vitals unremarkable GCS of 15 with no focal or lateralizing neurological deficits No lacerations contusions abrasions hematomas No cervical tenderness Patient does have midline lower thoracic and lumbar tenderness no step-offs Heart regular rate and rhythm Lungs are clear he does have left-sided lower chest tenderness Abdomen soft nontender nondistended Active full range of motion x4 extremities without pain Test Results: Lumbar and thoracic x-rays are negative for fracture or traumatic injury. X-rays of the ribs and a PA chest are normal. CT the head shows a subtle focal hyperdensity in the left cerebellum 7 mm concerning for hemorrhage. CT of the cervical spine is pending. Emergency Department Course and Treatment: Imaging obtained as above. I was called by radiology. There is a subtle hyperdensity which while calcification is a possibility given his trauma and fall from height we need to assume his hemorrhage and treat as so. I discussed the findings with the patient. Patient will be transferred to a trauma center. They are requesting [place]. Treatment Plan: [] Disposition: Transfer Impression: Cerebellar hemorrhage Back contusion Rib contusion This note was generated with [employer] dictation software. It may contain incorrect words, spelling, and punctuation that were not noted in review of the chart prior to signing ED Disposition - Plan for ED Patient: Referrals: Alana Phelps MD [Primary Care Provider] -
[2018-12-08 00:58] VITALS: BP 146/53; PULSE 71; RESP 16; O2SAT 95
[2018-12-08 01:03] LABS: Absolute Lymphocyte Count 2.43 X10^3/ul (0.83-4.51); Absolute Neutrophil Count 7.8 X10^3/uL (2.0-7.7); Basophil# 0.06 X10^3/uL; Basophil% 0.5 % (0-1); Eosinophil# 0.17 X10^3/uL; Eosinophils% 1.5 % (0-5); Hemoglobin 14.4 g/dl (13.0-16.5); Lymphocyte # 2.43 X10^3/ul (4.0); Mean Corpuscular Volume 84.4 fL (80-94); Mean Platelet Vol. 10.6 fl (6.2-12.0); Monocyte# 1.06 X10^3/uL; Monocyte% 9.2 % (0-10); Neutrophil # 7.82 X10^3/uL (2.7-7.7); Neutrophil % 67.5 % (47-70); Platelet Count 199 K/mm3 (150-450); RBC Distribution Width CV 14.2 % (11.6-14.6); RBC Distribution Width SD 43.7 fl (35.1-43.9); Red Blood Count 5.33 M/mm3 (4.6-6.2); White Blood Count 11.6 K/mm3 (4.4-11.0)
[2018-12-08 01:04] LABS: POSITIVE COUNT NO; POSITIVE DIFFERENTIAL NO; POSITIVE MORPHOLOGY NO
[2018-12-08 01:06] VITALS: BP 146/53; PULSE 74; RESP 16; O2SAT 96
[2018-12-08 01:10] LABS: Prothrombin Time (Protime)PT. 12.9 SECONDS (11.7-14.9)
[2018-12-08 01:19] LABS: Anion Gap 6 (5-15); BUN 26 mg/dL (7-18); Calcium,Total 9.2 mg/dL (8.5-10.1); Chloride 110 mmol/L (98-107); EST Glomerular Filtration Rate 58 mL/min (>60); Est Glom Filt Rate - Afr Amer 70 mL/min (>60); Estimated Creatinine Clearance 47.03 ml/min; Glucose 82 mg/dL (74-106); Potassium 3.8 mmol/L (3.5-5.1); Sodium Level 141 mmol/L (136-145)
== END 2018-12-08 02:04 | disposition short-term general hospital (02) ==
PROVIDERS: Emergency Provider Emergency Medicine; Family Provider Internal Medicine; PCP Internal Medicine
DX: S06.370A Contusion, laceration, and hemorrhage of cerebellum without loss of consciousness, initial encounter (principal); S30.0XXA Contusion of lower back and pelvis, initial encounter; S20.212A Contusion of left front wall of thorax, initial encounter; I10 Essential (primary) hypertension; E78.00 Pure hypercholesterolemia, unspecified; Z79.82 Long term (current) use of aspirin; Z79.899 Other long term (current) drug therapy; W11.XXXA Fall on and from ladder, initial encounter; Y93.89 Activity, other specified; Y92.89 Other specified places as the place of occurrence of the external cause; Y99.8 Other external cause status
CPT/HCPCS: 70450; 71101; 72072; 72100; 72125; 80048; 85025; 85610; 99284; A4216

== ENCOUNTER → 2019-03-09 | Outpatient (CLI) | payer MEDICARE, BC, SELFPAY ==
--- NOTE | 2019-03-09 11:47 | CT_ITS ---
STUDY: CT CHEST WITHOUT CONTRAST REASON FOR EXAM: Male, 73 years old. Chest pain and cough, previous abnormal CT RADIATION DOSAGE (If Supplied By Facility): CTDIvol = ( 15.35 ) mGy, DLP = ( 613.87 ) mGycm TECHNIQUE: Transaxial imaging was performed without the administration of intravenous contrast material. Individualized dose optimization techniques were used for this CT. COMPARISON: 08/10/2018 FINDINGS: Lung windows do not show evidence of a superimposed acute pulmonary process. No organized infiltrate or effusion,. There is a noncalcified 3.4 mm nodule in the right lower lobe on axial image 87 and a punctate right lower lobe nodule on axial image 67. The soft tissue windows show low-density nodules within the thyroid gland. There are scattered subcentimeter axillary and mediastinal lymph nodes. Normal heart and pericardium. There are calcifications of the coronary arteries. Normal mediastinum. Normal hilar regions. Normal unenhanced pulmonary arteries. Normal aorta arch and descending thoracic aorta. There are multi-level degenerative changes of the thoracic spine. There is no demonstrated abnormality of the visualized upper abdomen. CT/Chest without Contrast IMPRESSION: 2 separate noncalcified nodules noted in the right lower lobe and axial images 67 and 87 as described above. Another six-month follow-up is recommended to assure stability. No organized infiltrate or effusion No suspicious adenopathy Calcified coronary vessels Electronically Signed: Angel Em MD at 12:38 EDT , Service support ,
== END | disposition home or self-care (01) ==
LOC: CT 11:45
PROVIDERS: Family Provider Internal Medicine; PCP Internal Medicine; Referring Provider Internal Medicine; Visit Provider Internal Medicine
DX: R91.8 Other nonspecific abnormal finding of lung field (principal)
CPT/HCPCS: 71250

== ENCOUNTER → 2019-08-03 | Outpatient (CLI) | payer MEDICARE, BC, SELFPAY ==
--- NOTE | 2019-08-03 07:51 | US_ITS ---
STUDY: THYROID ULTRASOUND REASON FOR EXAM: Male, 73 years old. TECHNIQUE: Ultrasound evaluation of the thyroid was performed with real-time and static garcia-scale imaging. COMPARISON: Prior CT scan of the chest obtained on 12/07/2018. FINDINGS: RIGHT LOBE: The right lobe of the thyroid gland measures 4.7 x 1.8 x 1.8 cm. There is a homogeneous echotexture. There are 2 nodular densities noted in the right thyroid lobe which have well-defined margins. The more superior is solid nodular density measures 4.5 x 0.5 x 0.4 cm in size. The more inferior density measures 1.2 x 1.1 cm in size. LEFT LOBE: The left lobe of the thyroid gland measures 4.5 x 1.9 x 1.9 cm. There is a homogeneous echotexture. There is a solid nodular density noted in the left lobe of thyroid which measures 1.7 x 0.96 cm in size. This also has well-defined margins. ISTHMUS: The isthmus measures 0. 4 cm. The regional lymph nodes are normal. US/Thyroid IMPRESSION: 2 well-defined thyroid nodules are noted on the right hand a well-defined nodule is noted in the inferior pole of the thyroid on the left. These well-defined thyroid nodules are uncertain etiology but probably represent thyroid adenomas. The inferior pole lesions may also represent parathyroid tissue. A follow-up thyroid ultrasound in a year would be helpful for additional evaluation. Electronically Signed: Jl Hanley, at 9:50 EDT Tel , Service support ,
== END | disposition home or self-care (01) ==
LOC: US 07:49
PROVIDERS: Family Provider Internal Medicine; PCP Internal Medicine; Referring Provider Internal Medicine; Visit Provider Internal Medicine
DX: E04.1 Nontoxic single thyroid nodule (principal)
CPT/HCPCS: 76536

== ENCOUNTER → 2019-09-27 08:22 | Outpatient (CLI) | payer MEDICARE, BC, SELFPAY ==
[2019-09-01 08:30] VITALS: BMI 30.9
--- NOTE | 2019-09-27 08:24 | CT_ITS ---
STUDY: CT CHEST WITHOUT CONTRAST REASON FOR EXAM: Male, 74 years old. Follow-up nodule RADIATION DOSAGE (If Supplied By Facility): CTDIvol = ( 15.26 ) mGy, DLP = ( 591.09 ) mGycm TECHNIQUE: Transaxial imaging was performed without the administration of intravenous contrast material. Individualized dose optimization techniques were used for this CT. COMPARISON: Prior study of 03/09/2019 FINDINGS: There is a stable 3.8 mm nodule of the right lower lobe image 85 series 4. There is a stable 2 mm nodule of the superior segment of the right lower lobe image 64 series 4. There is a stable 4 mm nodule of the posterior right upper lobe image 40 series 4. There is a stable 5.6 mm nodule of the anterior left lower lobe image 90 series 4. There is no demonstrated pleural abnormality. Normal heart and pericardium. The heart size is within normal limits. There is no pericardial effusion. Coronary arterial calcifications are present. There are scattered nonpathologically enlarged mediastinal nodes. Hilar areas are difficult to assess on this noncontrast study. There is no obvious hilar mass or adenopathy. There is mild dilatation of the main and right pulmonary arteries. The main pulmonary artery measures up to 3.1 cm. There are calcified plaques of the thoracic aorta. There is endplate spondylosis of the thoracic spine. There are calcified plaques of the abdominal aorta. CT/Chest without Contrast IMPRESSION: Stable bilateral pulmonary nodules. No new nodules are evident. Appropriate follow-up using inflation necessary criteria is recommended. Mild dilatation of the main pulmonary artery measuring up to 3.1 cm. This may be associated with pulmonary hypertension. Electronically Signed: Terrell Escobar MD at 22:03 EST , Service support ,
== END ==
PROVIDERS: Family Provider Internal Medicine; PCP Internal Medicine; Referring Provider Internal Medicine; Visit Provider Internal Medicine
DX: R91.1 Solitary pulmonary nodule (principal)
CPT/HCPCS: 71250

== ENCOUNTER → 2020-08-27 08:02 | Outpatient (CLI) | payer MEDICARE, BC, SELFPAY ==
[2019-09-01 08:30] VITALS: BMI 30.9
--- NOTE | 2020-08-28 09:06 | PFT ---
INTRODUCTION: The patient is a 75-year-old male that presents for pulmonary function studies secondary to a diagnosis of COPD. Respiratory therapy reports good patient effort. Bronchodilators were used during testing. INTERPRETATION: Forced expiration spirometry demonstrates the presence of a moderate large airways obstructive ventilatory defect. There was a significant response to aerosolized bronchodilators. Spirograms are of good quality and do not plateau indicating slow emptying of the lungs. Body plethysmography was performed and reveals lung volumes to be within normal limits. Diffusing capacity by single breath CO is also within normal limits. IMPRESSION: Partially reversible moderate large airways obstructive ventilatory defect with preserved lung volumes and diffusing capacity.
== END ==
PROVIDERS: PCP Internal Medicine; Referring Provider Internal Medicine; Visit Provider Internal Medicine
DX: J44.9 Chronic obstructive pulmonary disease, unspecified (principal)
CPT/HCPCS: 94060; 94726; 94729

== ENCOUNTER → 2020-08-31 06:46 | Outpatient (CLI) | payer MEDICARE, BC, SELFPAY ==
[2019-09-01 08:30] VITALS: BMI 30.9
--- NOTE | 2020-08-31 06:53 | ECHOD_ITS ---
Reason For Study: Dyspnea on exertion Procedure This was a 2D Doppler, Color Flow transthoracic echocardiogram. The exam was of adequate technical quality. Exam performed in department. Left Ventricle Normal LV size. Left ventricular systolic function is normal. The estimated ejection fraction is 70 %. Diastolic function is indeterminate. No regional wall motion abnormalities noted. Right Ventricle Normal RV size. Normal systolic function. Atria The left atrium is mildly enlarged. Normal right atrium. No doppler evidence for ASD. Mitral Valve There is no mitral annular calcification. Normal mitral valve. Trivial mitral valve insufficiency. Tricuspid Valve Normal tricuspid valve. Trivial tricuspid valve insufficiency. Right ventricular systolic pressure estimated to be 30 mmHg. Aortic Valve Trisinus/trileaflet aortic valve. Mild focal aortic valve thickening. Mild focal aortic valve calcification. Aortic sclerosis, no stenosis. Pulmonic Valve The pulmonic valve is not well visualized. Great Vessels Normal sized aortic root. Pericardium/Pleural Trivial pericardial effusion. There are no echocardiographic indications of cardiac tamponade. MMode/2D Measurements & Calculations LVIDd: 5.4 cm IVSd: 1.5 cm Ao root diam: 3.6 cm LVIDs: 3.0 cm LVPWd: 1.4 cm LA dimension: 4.7 cm RVDd: 4.1 cm FS: 44.0 % LAV(MOD-bp): 72.9 ml LA A4 area: 22.7 cm2 RA A4 area: 21.1 cm2 LAV(MOD-bp) Indexed: 37.1 ml/m2 LAV(MOD-sp2): 65.8 ml LAV(MOD-sp4): 69.9 ml Time Measurements MV dec time: 0.25 sec Doppler Measurements & Calculations MV E max salbador: 88.2 cm/sec Lat Peak E' Salbador: 6.4 cm/sec Med Peak E' Salbador: 9.2 cm/sec MV A max salbador: 128.6 cm/sec E/E' lat: 13.8 E/E' med: 9.6 MV E/A: 0.69 MV V2 max: 139.6 cm/sec MV P1/2t max salbador: 104.0 cm/sec Ao V2 max: 178.9 cm/sec MV max P.8 mmHg MV P1/2t: 80.8 msec Ao max P.8 mmHg MV V2 mean: 65.1 cm/sec MV dec slope: 376.9 cm/sec2 MV mean P.0 mmHg MVA(P1/2t): 2.7 cm2 MV V2 VTI: 37.5 cm LV V1 max: 154.2 cm/sec PA V2 max: 138.7 cm/sec TR max salbador: 258.1 cm/sec LV V1 max P.5 mmHg TR max P.7 mmHg Interpretation Summary Left ventricular systolic function is normal. The estimated ejection fraction is 70 %. The left atrium is mildly enlarged. Trivial mitral valve insufficiency. Trivial tricuspid valve insufficiency. Aortic sclerosis, no stenosis. Trivial pericardial effusion. There are no echocardiographic indications of cardiac tamponade. Right ventricular systolic pressure estimated to be 30 mmHg. Diastolic function is indeterminate. Ordering Physician: Niurka Duarte Referring Physician: Niurka Duarte Performed By: Antoni Gayle RCS
--- NOTE | 2020-08-31 16:54 | STRESSREP_ITS ---
Stress Test Report Pharmacologic myocardial perfusion stress test. 75-year-old man with a history of coronary calcification. Stress protocol: Resting EKG demonstrates normal sinus rhythm with a rate of 76 bpm normal intervals are noted resting blood pressure is 162/70 mmHg. 0.4 mg of regadenoson was infused per usual protocol followed by rapid venous saline flush injection continuous EKG monitoring was performed. The maximum heart rate attained was 113 bpm which was 76% of maximum predicted heart rate the maximum workload was 1 metabolic equivalent. At rest there were no ST or T wave changes noted to suggest abnormal flow reserve at peak infusion nonspecific ST-T wave changes were noted with no meet criteria for ischemia. The final blood pressure was 150/66 mmHg. Myocardial perfusion protocol. 11.2 mCi of technetium 99m sestamibi was injected at rest. 0.4 mg of regadenoson was infused per usual protocol. At peak infusion 32.8 mCi of michael hnetium 99m sestamibi was injected stress images were obtained stress and rest images were reconstructed and compared in the short axis vertical long horizontal long axis. Gated images were also obtained Perfusion SPECT analysis: Review of the images demonstrate normal uptake of tracer noted in all areas of myocardium the resting images similar demonstrate normal uptake of tracer noted in all areas of the myocardium. No evidence of reversibility is noted suggest ischemia no previous infarct is noted. Gated SPECT analysis: The gated ejection fraction is 68%. Conclusion: Normal pharmacologic myocardial perfusion stress test. Preserved ejection fraction.
== END ==
PROVIDERS: PCP Internal Medicine; Referring Provider Internal Medicine; Visit Provider Internal Medicine
DX: R06.09 Other forms of dyspnea (principal)
CPT/HCPCS: 78452; 93017; 93306; A9500; A4216; J2785

== ENCOUNTER 2021-01-10 13:38 | Outpatient (RCR) | payer MEDICARE, BC, SELFPAY ==
[2020-09-04 07:37] VITALS: BMI 31.1
[2021-01-10] MEDS: COVID-19 VACC, MRNA(PFIZER)/PF 30 MCG/0.3 ML SYRINGE IM (10:07)
[2021-01-31] MEDS: COVID-19 VACC, MRNA(PFIZER)/PF 30 MCG/0.3 ML SYRINGE IM (08:58)
== END 2021-01-10 23:59 ==
LOC: IMMUN 13:38
PROVIDERS: PCP Internal Medicine; Visit Provider Family Medicine
DX: Z23 Encounter for immunization (principal)
CPT/HCPCS: 0001A; 0002A; 91300

== ENCOUNTER → 2022-05-12 | Outpatient (CLI) | payer MEDICARE, BC, SELFPAY ==
--- NOTE | 2022-05-12 07:13 | CT_ITS ---
STUDY: CT CHEST WITH CONTRAST REASON FOR EXAM: Male, 76 years old. History of lung nodule. RADIATION DOSAGE (If Supplied By Facility): CTDIvol = ( 13.26 ) mGy, DLP = ( 498.77 ) mGycm TECHNIQUE: Transaxial imaging was performed following intravenous administration of IV 100mL Isovue-300. Multiplanar coronal and sagittal images were reformatted. Individualized dose optimization techniques were used for this CT. COMPARISON: Comparison is made with prior study dated 09/27/2019. FINDINGS: CHEST Stable small benign-appearing bilateral axillary Stable 3.8 mm nodule in the right lower lobe laterally as seen on axial image #81. Stable faint 2 mm nodule in the superior segment of the right lower lobe as seen on axial image #59. Stable 4 mm nodule in the posterior right upper lobe as seen on axial image #34. Stable 5.6 mm nodule in the anterior lateral aspect of the left lower lobe as seen on axial image #88. There is no demonstrated pleural abnormality. There are calcifications of the coronary arteries. Normal mediastinum. Normal hilar regions. Normal unenhanced pulmonary arteries. There is atherosclerotic calcification of the aortic arch with tortuosity and elongation of the aortic arch and descending thoracic aorta. There are multi-level degenerative changes of the thoracic spine. There is no demonstrated abnormality of the visualized upper abdomen. CT/Chest WITH Contrast IMPRESSION: Stable examination. Twelve-month follow-up recommended. Electronically Signed: Marcelino Quinones MD at 8:32 EDT ,
== END | disposition home or self-care (01) ==
LOC: CT 06:47
PROVIDERS: PCP Internal Medicine; Referring Provider Internal Medicine; Visit Provider Internal Medicine
DX: R91.1 Solitary pulmonary nodule (principal)
CPT/HCPCS: 71260; Q9967

== ENCOUNTER → 2022-09-16 | Outpatient (CLI) | payer MEDICARE, BC, SELFPAY ==
[2022-09-16 12:58] LABS: Anion Gap 8 (5-15); BUN 15 mg/dL (7-18); BUN/Creat Ratio 12.3 RATIO (10-20); Chloride 105 mmol/L (98-107); Creatinine, Serum 1.22 mg/dL (0.70-1.30); EST Glomerular Filtration Rate 62 mL/min (>60); Est Glom Filt Rate - Afr Amer 75 mL/min (>60); Glucose 161 mg/dL (74-106); Potassium 4.5 mmol/L (3.5-5.1); Sodium Level 140 mmol/L (136-145)
[2022-09-16 13:01] LABS: BNP,B-Type NATRIURETIC PEPTIDE 40.2 pg/mL (0-100)
== END | disposition home or self-care (01) ==
LOC: LAB 11:33
PROVIDERS: PCP Internal Medicine; Referring Provider Internal Medicine Cardiovascular Disease; Visit Provider Internal Medicine Cardiovascular Disease
DX: R06.00 Dyspnea, unspecified (principal); I10 Essential (primary) hypertension
CPT/HCPCS: 36415; 80048; 83880

== ENCOUNTER → 2023-09-01 | Outpatient (CLI) | payer MEDICARE, BC, SELFPAY ==
--- NOTE | 2023-09-01 11:03 | RAD_ITS ---
EXAM: XR LUMBOSACRAL SPINE FLEXION/EXTENSION ONLY, 2 OR 3 VIEWS CLINICAL INDICATION: lumbar radiculopathy -- lumbar radiculopathy TECHNIQUE: Lateral flexion/extension views of the lumbar spine and sacrum. COMPARISON: Lumbar spine radiographs, 08/28/2023. FINDINGS: VERTEBRAE: Multilevel endplate osteophytosis and facet arthrosis. Degenerative anterolisthesis of L4 upon L5 measuring approximately 5 mm without significant change upon flexion or extension and no evidence of spondylolysis. Preserved vertebral body height. No fracture. Preservation of the normal lumbar lordosis. DISC SPACES: Multilevel intervertebral disc height loss. VASCULATURE: Vascular calcifications. GASTROINTESTINAL TRACT: Normal as visualized. Included bowel gas pattern is non-obstructive. RAD/L/S Spine Bending Flex/Ext IMPRESSION: Degenerative anterolisthesis of L4 upon L5 measuring approximately 5 mm without significant change upon flexion or extension and no evidence of spondylolysis. Additional degenerative changes. Electronically Signed: Neptali Kidd DO at 21:01 EST ,
== END | disposition home or self-care (01) ==
LOC: RAD 11:03
PROVIDERS: PCP Internal Medicine; Referring Provider Internal Medicine; Visit Provider Internal Medicine
DX: M54.16 Radiculopathy, lumbar region (principal)
CPT/HCPCS: 72120

== ENCOUNTER 2023-09-24 12:30 | Outpatient (RCR) | payer MEDICARE, BC, SELFPAY ==
--- NOTE | 2023-09-04 10:49 | HP.PTEVAL ---
Patient's Visit Information Visit Information Visit Information: VIC LOCKWOOD is a 78 year old M referred to Physical Therapy by Dr. Niurka Duarte DO with a diagnosis of LBP with radiculopathy. Date of Evaluation: 09/03/23 Physical Therapist: Fadi Potter, PT, ATC Visit Plan Frequency: 2x /Week Duration: 3-6 weeks Plan: REIL, core stab ex's, postural education, and HEP Subjective Subjective: Pt reports he has had LBP for approximately one year. Pt notes he didnt do anything for his pain over the last year as he thought it would just get better. Pt reports his pain has become more consistent over this time period. Pt notes he has intermittent pain and tingling in B LE's that radiates from his low back. Pt notes he had xrays taken which revealed he has degenerative disc disease. Pt reports prolonged sitting, standing, walking, and bending forwards all increase his pain. Pt reports the only thing that helps to decrease his pain is medication. Pt reports he has sleep difficulty, but doesnt relate that to his LBP and he has other issues. Pt reports he has to perform many outside chores and has to put them off at times secondary to his LBP. 0/10 pain while sitting here in the clinic, 8/10 pain while pain is at its worst. Pain LBP: Pain Intensity (Out of 10): 0 Pain Intensity Range: 8 Objective Objective: Neuro: B LE sensation is WNL to light touch. B patellar reflex= 2/3 ROM: L/S ext is severely limited. All other L/S ROM is WNL. B LE's are WNL when compared bilaterally MMT: B LE's 5/5 throughout Gait: Pt displays an antalgic gait pattern with a slow cadance, and forward flexion of the spine Repeated movements: Prone prop on elbows 1 min x 2 decreased LBP. REIL 10x2 decreased LBP Balance/Special Test Scores Oswestry Low Back Score: 26 Goals Goal 1:: Decrease LBP x 50% to aid with standing tolerance Goal Time Frame: 4-6 Weeks Goal 2:: Increase L/S ROM ext x 1 grade to aid with decreasing LBP Goal Time Frame: 4-6 Weeks Goal 3:: Decrease the frequency and intensity of B LE radiculopathy x 25% to aid with tolerance for outside chores Goal Time Frame: 4-6 Weeks Goal 4:: I with HEP Goal Time Frame: 4-6 Weeks Rehabilitation Potential Physical Therapy Diagnosis: Pt has LBP, B LE radiculopathy, and limited L/S ext ROM secondary to L/S disc derrangement Rehabilitation Potential: Good Anticipated Interventions Patient/Client Instruction: Educate patient on: Condition and Plan of Care For the Purpose of:: To improve self management Therapeutic Exercise to Include: Strength training, Body mechanics, Postural training, Flexibilty training, Dynamic Lumbar Stabilization and Jaguar Exercises For the Purpose of:: To decrease pain, To increase ROM and To improve muscle performance and motor function Text: Thank you for the opportunity to evaluate your patient. For Medicare and Medicare HMO plans, please review the plan of care and approve it. It will need to be FAXED BACK to us at [phone] for Medicare purposes. For Medicare only, by signing this I certify the plan of care. Please let me know if there are questions or concerns regarding this plan of care. Physician Signature: Date:
--- NOTE | 2023-09-24 13:18 | HP.PTREVAL_ITS ---
Re-Evaluation Intro: Dr. Niurka Duarte, DO, It has been my pleasure to treat VIC LOCKWOOD over the last 7 visits for LBP with radiculopathy. Please see the progress note below for an update on the physical therapy plan of care! Subjective Subjective: I am ready to be done, just not sure I will do the ex's Objective Objective/Function: LBP ranges from 2-7/10 L LE radiculopathy has remained unchanged Pt has full L/S ROM at this time Pt is I with HEP LE radiculopathy and pain has improve d minimally, L/S ROM is now WNL. Plan Plan Plan: Reassess or discharge in 3 weeks Balance/Gait/Functional tests Balance/Special Test Scores Oswestry Low Back Score: 26 Goals Goals Goal 1:: Decrease LBP x 50% to aid with standing tolerance Goal Time Frame: 4-6 Weeks Goal Progress: Progressing Goal 2:: Increase L/S ROM ext x 1 grade to aid with decreasing LBP Goal Time Frame: 4-6 Weeks Goal Progress: Goal Met Goal 3:: Decrease the frequency and intensity of B LE radiculopathy x 25% to aid with tolerance for outside chores Goal Time Frame: 4-6 Weeks Goal Progress: Not Progressing Goal 4:: I with HEP Goal Time Frame: 4-6 Weeks Goal Progress: Goal Met Anticipated Interventions Anticipated Interventions Patient/Client Instruction: Educate patient on: Condition and Plan of Care For the Purpose of:: To improve self management Therapeutic Exercise to Include: Strength training, Body mechanics, Postural tr aining, Flexibilty training, Dynamic Lumbar Stabilization and Jaguar Exercises For the Purpose of:: To decrease pain, To increase ROM and To improve muscle performance and motor function Re-Evaluation Ending Re-evaluation ending: Please do not hesitate to contact me at [phone] by phone or if you have questions or concerns regarding this new plan of care! Sincerely, Fadi Potter, PT, ATC
== END 2023-09-24 19:00 | disposition home or self-care (01) ==
LOC: PT 12:30
PROVIDERS: PCP Internal Medicine; Referring Provider Internal Medicine; Visit Provider Internal Medicine
DX: M54.16 Radiculopathy, lumbar region (principal); M54.50 Low back pain, unspecified
CPT/HCPCS: 97110; 97161; 97164

== ENCOUNTER → 2024-01-04 | Outpatient (CLI) | payer MEDICARE, BC, SELFPAY ==
--- NOTE | 2024-01-04 14:00 | MRI_ITS ---
STUDY: MRI LUMBAR SPINE WITHOUT CONTRAST REASON FOR EXAM: Male, 78 years old. lumbar radiculopathy TECHNIQUE: Standardized fat and water weighted pulse sequences were obtained in the sagittal and axial planes. COMPARISON: X-ray the lumbar spine dated September 01, 2023 FINDINGS: T12-L1: Normal endplates. Diffuse disc desiccation with moderate disc space narrowing and a diffuse disc bulge. Normal bilateral facet joints. Normal central canal and bilateral lateral recesses. Normal bilateral intervertebral neural foramina. Normal lumbar lordosis. There is a levoscoliosis of the lumbar spine. Normal conus medullaris that terminates at the L1 level. No marrow edema or fracture or compression deformity is present. Multiple small cysts are scattered throughout both kidneys. L1-2: Normal endplates. Diffuse disc desiccation with mild posterior disc space narrowing and no bulging or herniation of the disc. Normal bilateral facet joints. Normal central canal and bilateral lateral recesses. Normal bilateral intervertebral neural foramina. L2-3: Normal endplates. Diffuse disc desiccation with mild posterior disc space narrowing without bulging or herniation. Mild facet joint hypertrophy. Normal central canal and bilateral lateral recesses. Normal bilateral intervertebral neural foramina. L3-4: Diffuse disc desiccation with mild posterior disc space narrowing and slight annular bulging. Normal bilateral facet joints. Normal central canal and bilateral lateral recesses. Normal bilateral intervertebral neural foramina. L4-5: Diffuse disc desiccation with moderate disc space narrowing and posterior annular bulging moderate to significant facet joint hypertrophy contributing to moderate central canal stenosis and bilateral lateral recess stenosis with nerve root compression. Mild to moderate fluid distention of the right facet joint. Moderate right foraminal stenosis with nerve root compression. Mild left foraminal stenosis. L5-S1: Severe disc space narrowing with a diffuse disc spur complex contributing to mild central canal stenosis and bilateral lateral recess stenosis. Moderate bilateral foraminal stenosis or facet joint hypertrophy. Moderate to severe bilateral foraminal stenosis. Normal bilateral facet joints. Normal visualized sacral ala. Normal visualized paraspinous soft tissue structures. MRI/Spine Lumbar (Routine) IMPRESSION: 1. Multilevel degenerative changes, as described above. 2. Moderate central canal stenosis at L4-L5 3. Moderate to severe bilateral foraminal stenosis at L5-S1. Electronically Signed: Raymond Parker MD at 15:05 EDT ,
== END | disposition home or self-care (01) ==
LOC: MRI 12:24
PROVIDERS: PCP Internal Medicine; Referring Provider Internal Medicine; Visit Provider Internal Medicine
DX: M54.16 Radiculopathy, lumbar region (principal)
CPT/HCPCS: 72148

== ENCOUNTER → 2024-01-14 | Outpatient (CLI) | payer MEDICARE, BC, SELFPAY ==
--- NOTE | 2024-01-14 12:26 | CDU_ITS ---
Reason For Study: Carotid Stenosis Rt. Velocities/BP Lt. Velocities/BP Prox CCA 101.4/16.2 cm/sec. Prox CCA 108.9/13.9 cm/sec. Mid CCA 92.9/14.1 cm/sec. Mid CCA 93.0/16.0 cm/sec. Dist CCA 84.4/11.9 cm/sec. Dist CCA 87.5/12.7 cm/sec. Prox ICA 150.5/24.7 cm/sec. Prox ICA 128.9/42.7 cm/sec. Mid ICA 114.5/20.6 cm/sec. Mid ICA 121.6/23.0 cm/sec. Dist ICA 88.0/14.4 cm/sec. Dist ICA 79.5/19.6 cm/sec. Rt. ICA/CCA = 1.6. Lt. ICA/CCA = 1.4. Prox ECA 150.9/10.2 cm/sec. Prox ECA 237.9/18.1 cm/sec. Rt. Vert. 50.8/10.3 cm/sec. Lt. Vert. 68.37/23.0 cm/sec. Right Extracranial There is heterogeneous, irregular atherosclerotic plaque noted in the right common carotid artery. There is heterogeneous, irregular atherosclerotic plaque noted in the right internal carotid artery. There is heterogeneous, irregular atherosclerotic plaque noted in the right external carotid artery. Antegrade flow is noted in the right vertebral artery. Left Extracranial There is heterogeneous, irregular atherosclerotic plaque noted in the left common carotid artery. There is heterogeneous, irregular atherosclerotic plaque noted in the left internal carotid artery. There is heterogeneous, irregular atherosclerotic plaque noted in the left external carotid artery. Antegrade flow is noted in the left vertebral artery. Procedure Carotid Duplex 38982. This is a Carotid Duplex examination using B-mode, color flow and specral Doppler. The exam was diagnostic. Exam performed in department. VL/Carotid Duplex Ultrasound Interpretation Summary Moderate (50-69%) stenosis right extracranial internal carotid. Moderate (50-69%) stenosis left extracranial internal carotid. Patent and antegrade vertebrals bilaterally. Ordering Physician: Niurka Duaret Referring Physician: Niurka Duarte Performed By: Yong Rivera RVT and Student
--- NOTE | 2024-01-14 12:26 | ART_ITS ---
Reason For Study: PVD Procedure A bilateral lower extremity continuous wave Doppler with analog waveform analysis,segmental pressures,and ankle brachial indexes with exercise. Left Segmental Pressures Left brachial= 154mmHg. Left posterior tibial artery = 137mmHg. Left dorsalis pedis artery = 142mmHg. Left digit = 109 mmHg. The left posterior tibial artery waveforms are triphasic. The left dorsalis pedis waveforms are triphasic. Right Segmental Pressures Right brachial= 144mmHg. Right posterior tibial artery = 117mmHg. Right dorsalis pedis artery = 115mmHg. Right digit = 81 mmHg. The right posterior tibial artery waveforms are triphasic. The right dorsalis pedis waveforms are triphasic. Indices The right ankle brachial index by the posterior tibial artery is 0.76. The right ankle brachial index by the dorsalis pedis is 0.75. The right digital-brachial index is 0.81. The right ankle brachial index by the posterior tibial artery post exercise is 0.75. The left ankle brachial index by the posterior tibial artery is 0.89. The left ankle brachial index by the dorsalis pedis is 0.92. The left digital-brachial index is 0.71. The left dorsalis pedis index post exercise is 0.95. VL/Lower Ext Art Exam w/ Exercise Interpretation Summary Right CHETNA 0.76, moderate arterial insuffciency. Doppler/PVR waveforms of the ri ght leg moderately diminished infrapopliteal. Right lower extremity exhibits no change in response to exercise. Left CHETNA 0.92, mild arterial insufficiency. Doppler/PVR waveforms of the left l eg mildly diminshed infrapopliteal. Left lower extremity exhibits no change in response to exercise. Ordering Physician: Niurka Duarte Referring Physician: Niurka Duarte M.D. Performed By: Yong Rivera RVT and Student
== END | disposition home or self-care (01) ==
LOC: CVS 12:25
PROVIDERS: PCP Internal Medicine; Referring Provider Internal Medicine; Visit Provider Internal Medicine
DX: I73.9 Peripheral vascular disease, unspecified (principal); I65.23 Occlusion and stenosis of bilateral carotid arteries
CPT/HCPCS: 93880; 93924

== ENCOUNTER 2024-01-24 21:04 | Inpatient (IN) | payer MEDICARE, BC, SELFPAY ==
[2024-01-24] VITALS (7 sets, daily range): BP systolic 122–189; BP diastolic 56–97; PULSE 79–88; RESP 16–26; TEMP 36.4; O2SAT 87–94; BMI 31.8
--- NOTE | 2024-01-24 21:36 | EKG12_ITS ---
Test Reason : SOB Blood Pressure : / mmHG Vent. Rate : 086 BPM Atrial Rate : 086 BPM P-R Int : 132 ms QRS Dur : 078 ms QT Int : 336 ms P-R-T Axes : 072 075 055 degrees QTc Int : 402 ms Normal sinus rhythm Normal ECG Confirmed by Milind Ghosh ([id number]), order editor BRICE FORD ([id number]) on 01/26/2024 10:15:40 AM Referred By: Confirmed By:Milind Ghosh
[2024-01-24 21:42] LABS: Absolute Lymphocyte Count 1.58 X10^3/uL (0.83-4.51); Absolute Neutrophil Count 4.2 X10^3/uL (2.0-7.7); Basophil# 0.11 X10^3/uL; Basophil% 1.5 % (0-1); Eosinophil# 0.48 X10^3/uL; Eosinophils% 6.8 % (0-5); Hematocrit 42.9 % (40-54); Hemoglobin 13.4 g/dL (13.0-16.5); Lymphocyte # 1.58 X10^3/ul (0.83-4.51); Lymphocyte % 22.2 % (19-41); Mean Corp Hgb Conc 31.2 g/dL (32-36); Mean Corpuscular Hgb 26.1 pg (27.0-32.0); Mean Corpuscular Volume 83.5 fL (80-94); Mean Platelet Vol. 9.8 fl (6.2-12.0); Monocyte# 0.71 X10^3/uL; NRBC Flagged by Analyzer 0 % (0-5); Neutrophil # 4.21 X10^3/uL (2.7-7.7); Neutrophil % 59.2 % (47-70); Platelet Count 266 K/mm3 (150-450); RBC Distribution Width CV 13.1 % (11.6-14.6); RBC Distribution Width SD 39.8 fl (35.1-43.9); Red Blood Count 5.14 M/mm3 (4.6-6.2); White Blood Count 7.1 K/mm3 (4.4-11.0)
[2024-01-24] MEDS: Ipratropium/Albuterol Sulfate 3 ML AMPUL.NEB INHALATION (21:42)
[2024-01-24] MEDS: Morphine 4 MG/ML Syringe IV (21:52)
[2024-01-24] MEDS: Ketorolac 15 MG/ML Vial IV (21:52)
[2024-01-24] MEDS: Ondansetron 4 MG/2 ML Vial IV (21:52)
[2024-01-24 22:03] LABS: Anion Gap 4 (5-15); BUN 21 mg/dL (7-18); BUN/Creat Ratio 16.2 RATIO (10-20); Calcium,Total 9.7 mg/dL (8.5-10.1); Chloride 102 mmol/L (98-107); EST Glomerular Filtration Rate 57 mL/min (>60); Est Glom Filt Rate - Afr Amer 69 mL/min (>60); Estimated Creatinine Clearance 50.65 ml/min; Glucose 111 mg/dL (74-106); Potassium 4.5 mmol/L (3.5-5.1); Sodium Level 136 mmol/L (136-145); Troponin-I HS 12 pg/mL (3.0-78.0)
--- NOTE | 2024-01-24 22:03 | RAD_ITS ---
INDICATION: chest pain EXAMINATION/TECHNIQUE: X-RAY - XR Chest 1 View AP portable. 10:03 PM COMPARISON: None. FINDINGS: LINES/DEVICES: None. LUNGS: No consolidation. No pneumothorax. MEDIASTINUM: Unremarkable. CARDIAC SILHOUETTE: Not enlarged. BONES AND SOFT TISSUES: No acute abnormalities. RAD/Chest 1 View (Portable) IMPRESSION: No evidence of active intrathoracic disease. Electronically Signed: Zeny Kaur MD at 22:12 EDT ,
[2024-01-24] MEDS: Azithromycin 250 MG Tablet 500 MG PO (23:38)
[2024-01-24] MEDS: MethylPREDNISolone 125 MG/2 ML Vial 60 MG IV (23:38)
--- NOTE | 2024-01-24 23:40 | PCM.HP.STD ---
[facility] - General General Date of Admission: 01/24/24 Date of Service: 01/24/24 Chief Complaint: Chest pain and shortness of breath. HPI Narrative VIC LOCKWOOD, is a 78 M with a past medical history of essential hypertension, hyperlipidemia, obesity; BMI 31.8 this admission, remote history of tobacco abuse (quit 10 years ago); with subsequent COPD, peripheral vascular disease, erectile dysfunction; on as needed sildenafil, BPH; s/p TURP, muscle spasms and osteoarthritis; status post Right knee surgery who presents to [facility] ER complaining of chest pain and shortness of breath. Mr. Lockwood reports his symptoms began approximately 2 to 3 days prior to admission with a viral upper respiratory infection followed by the gradual onset of dyspnea on exertion that progressed to shortness of breath at rest. He also admits to wheezing and chest pain that is initially pressure-like but then worsened with cough and became sharp and stabbing mainly over the anterior aspect of his chest. The chest pain is reproducible with palpation of his sternum and is also made worse with movement but is not completely relieved by rest and that is causing him to be afraid to cough. He denies having to wear supplemental oxygen at home. He denies associated fever, chills, nausea or vomiting. In the ER diagnosed with acute exacerbation of COPD complicated by clinical evidence of acute hypoxic respiratory insufficiency likely due to recent viral upper respiratory infection compounded by severe costochondritis and pleuritic chest pain worse with cough and deep breathing and he was then admitted to the general medical floor for ongoing care for stated expected to be greater than 48 hours. [facility] Medical History Abnormal computed tomography angiography of heart Abnormal CT scan of lung BPH (benign prostatic hyperplasia) COPD (chronic obstructive pulmonary disease) Erectile dysfunction Essential (primary) hypertension Hyperlipidemia Nonobstructive atherosclerosis of coronary artery Obesity Osteoarthritis Home Medications fenofibrate nanocrystallized 145 mg tablet 145 mg PO DAILY 12/30/15 [History Last Taken 01/08/16 09:00] amlodipine 10 mg tablet 10 mg PO DAILY 08/31/18 [History Last Taken 09/27/18] losartan 100 mg tablet 100 mg PO DAILY 08/31/18 [History Last Taken 09/27/18] aspirin 81 mg tablet,delayed release (Adult Aspirin Regimen) 81 mg PO DAILY 09/24/18 [History Last Taken 09/27/18] pravastatin 80 mg tablet (Pravachol) 80 mg PO QHS 09/01/19 [History Last Taken Unknown] sildenafil 100 mg tablet 100 mg PO DAILY PRN sexual activity 09/04/20 [History Last Taken Unknown] hydralazine 50 mg tablet 50 mg PO DAILY 09/16/22 [History Last Taken Unknown] icosapent ethyl 1 gram capsule 2 g PO BID 09/16/22 [History Last Taken Unknown] hydrochlorothiazide 25 mg tablet 25 mg PO DAILY #90 tabs 10/24/22 [Rx Last Taken Unknown] tizanidine 4 mg tablet 4 mg PO BID PRN muscle spasticity 09/14/23 [History Last Taken Unknown] Allergy/AdvReac Type Severity Reaction Status Date / Time No Known Allergies Allergy Verified 01/24/24 21:05 Family History Mother Hypertension Father Myocardial infarction [place] 70's Surgical History History of left heart catheterization (09/27/18) History of right knee surgery History of transurethral resection of prostate (2016) Social History Smoking Status: Former smoker quit date: 10/26/92 pack-years: 20 how long ago did patient quit smokin years ago alcohol intake: current alcohol intake frequency: a few times a week substance use type: does not use caffeine: Yes Type: carbonated beverages and coffee Number of servings: 1 ROS ROS Narrative Review of systems: Constitutional: Patient denies fever or chills. Eyes: Patient denies changes in vision or discharge from eyes. ENT: Patient denies ear pain or sore throat but he does admit to congestion. Cardiovascular: Patient admits to chest pain may worse with deep breathing and cough as per HPI. He denies palpitations or heart racing. Gastrointestinal: Patient denies abdominal pain, nausea, vomiting or diarrhea. Genitourinary: Patient denies dysuria, hematuria or urinary frequency. Musculoskeletal: Patient denies arthralgias or myalgias in his extremities. Integumentary: Patient denies abscess, rash or jaundice. Neurologic: Patient denies headache, paresthesias or focal neurologic weakness. Psychiatric: Patient admits to heightened anxiety due to increased pain from cough and deep breathing as per HPI. He denies depression or suicidal ideation. Endocrine: Patient denies polyuria, polydipsia o 14 point review of systems otherwise negative for the positives noted above in HPI. r polyphagia. Allergic: Patient denies any lip swelling, tongue swelling or urticaria. Hematology: Patient denies easy bleeding or easy bruisability. 14 point review of systems otherwise negative several positives noted above in HPI. Vital Signs Vital Signs Vital Signs: 01/24/24 21:05 01/24/24 21:43 01/24/24 21:36 Temperature 97.6 F L Temperature Source Temporal Pulse Rate 88 80 Respiratory Rate 26 H 16 Respiratory Effort Normal Blood Pressure 189/72 H Blood Pressure Mean 111 Pulse Ox 94 Oxygen Delivery Method Room Air Oxygen Flow Rate (L/min) 01/24/24 22:18 01/24/24 21:50 01/24/24 23:00 Temperature Temperature Source Pulse Rate 80 79 Respiratory Rate 18 18 Respiratory Effort Blood Pressure 122/97 H 134/56 H Blood Pressure Mean 105 82 Pulse Ox 91 87 91 Oxygen Delivery Method Nasal Cannula Room Air Nasal Cannula Oxygen Flow Rate (L/min) 2 2 01/24/24 23:29 Temperature Temperature Source Pulse Rate Respiratory Rate Respiratory Effort Blood Pressure Blood Pressure Mean Pulse Ox 91 Oxygen Delivery Method Nasal Cannula Oxygen Flow Rate (L/min) 3 Weight Weight: 197 lb 5.019 oz Body Mass Index (BMI) 31.8 Physical Exam Const alert and oriented x3 Constitutional Narrative: Patient is obese, alert and moderately anxious. General Appearance: cooperative HEENT normocephalic, head/scalp atraumatic, hearing grossly normal bilaterally and moist oral mucous membranes Eyes PERRL and EOMs intact bilaterally Neck no lymphadenopathy and supple Resp Resp Narrative: Diminished breath sounds throughout with expiratory wheezing audible from across room and exquisite tenderness to palpation of the anterior chest wall and sternum. Auscultation: wheezes Cardio regular rate and regular rhythm GI normal to inspection, nondistended, normoactive bowel sounds, soft to palpation, non-tender and non-distended GI Narrative: Obese. Extremity normal to inspection, full ROM and no clubbing, cyanosis or edema Skin Skin Narrative: Patient has no evidence of rash, jaundice or abscess. Neuro oriented x3, CN's II-XII intact bilaterally, moves all extremities and no focal motor deficits Sensorium / Orientation: awake, alert, oriented to person, oriented to place and oriented to time Speech: speech normal Motor Exam: strength 5/5 throughout Psych Psych Narrative: Patient is a very anxious clutching at towel over his anterior chest and asking for medications for anxiety. Mood & Affect: anxious Results Medical Records Data Attestation: I reviewed the patient's medical records Lab / Micro Data Attestation: I reviewed the patient's lab results. Lab results narrative: RUN DATE: 01/25/24 [facility], DEPARTMENT OF LABORATORIES PAGE 1 RUN TIME: 8 Specimen Inquiry [address], [place], [address] PATIENT: VIC LOCKWOOD LOC: MS3 U #: [id number] : 1945 AGE/SX: 78/M FACILITY: [facility] ROOM: [facility] [place] RE01/25/[address]: Ankit Caro STATUS:ADM IN ED: 1 DIS: ~ SPEC #: [id number] __ PHAM: 01/24/24-2145 STATUS: COMP REQ #: [id number] SOURCE: Mucosa RECD: 01/24/24-[address]: Dr. Buck Alston DO SPSESC: Nose ENTR: 01/24/24-[address]: Dr. Niurka Duarte, DO ~ ORDERED: COV+FLU+RSV PCR Procedure Result Verified COV + FLU + RSV PCR Final 01/24/24-2243 SARS-CoV-2 (COVID 19) Negative INFLUENZA A Negative INFLUENZA B Negative RSV PCR Negative END OF REPORT 01/24/24 21:15 01/24/24 21:15 Labs: Laboratory Results - last 24 hr 01/24/24 21:15: WBC 7.1, RBC 5.14, Hgb 13.4, Hct 42.9, MCV 83.5, MCH 26.1 L, MCHC 31.2 L, RDW Std Deviation 39.8, RDW Coeff of Aundrea 13.1, Plt Count 266, MPV 9.8, Immature Gran % (Auto) 0.300, Neut % (Auto) 59.2, Lymph % (Auto) 22.2, [place] % (Auto) 10.0, Eos % (Auto) 6.8 H, Baso % (Auto) 1.5 H, Absolute Neuts (auto) 4.2, Absolute Lymphs (auto) 1.58, Nucleated RBC % 0, Sodium 136, Potassium 4.5, Chloride 102, Carbon Dioxide 30.0, Anion Gap 4 L, BUN 21 H, Creatinine 1.30, Estim Creat Clear Calc 50.65, Est GFR (MDRD) Af Amer 69, Est GFR (MDRD) Non-Af 57 L, BUN/Creatinine Ratio 16.2, Glucose 111 H, Calcium 9.7, Troponin I High Sens 12 Micro: Microbiology 01/24/24 21:46 Mucosa - Nose SARS-CoV-2, Influenza & RSV (PCR) - Final Imaging Radiology Impression Chest X-Ray 01/24/24 22:03 IMPRESSION: No evidence of active intrathoracic disease. Electronically Signed: Zeny Kaur MD at 22:12 EDT , Assessment & Plan Assessment/Plan (1) COPD exacerbation: (2) Acute costochondritis: (3) Viral upper respiratory infection: (4) Respiratory insufficiency: (5) Obesity (BMI 30.0-34.9): PLAN: Plan 1. Acute exacerbation of COPD - Admit to general medical floor. Continue antibiotics, steroids and scheduled plus as needed nebulizers. 2. Acute hypoxic respiratory insufficiency due to #1 - Wean supplemental oxygen as tolerated with the patient currently on 3L NC. 3. Recent viral URI with costochondritis and pleuritic chest pain likely triggering #1 & #2 - Continue supportive care with Tylenol as needed and monitor for improvement. Give vitamin D3, vitamin C and zinc to help boost immunity and speed recovery. 4. Obesity; with BMI 31.8 this admission complicating #1 - #3 - Weight loss will be recommended as this adds to relative risk of his case and complicates prognosis. Check TSH. 5. Essential hypertension - Continue home regimen plus give as needed IV hydralazine for systolic blood pressure greater than 160 mmHg. 6. Hyperlipidemia - Resume statin. 7. Remote history of tobacco abuse (quit 10 years ago) - Noted. 8. Peripheral vascular disease - Stable. Continue home medications as previous. 9. Erectile dysfunction; on as needed sildenafil - Noted. The safety of this agent and is elderly patient will need to be reevaluated prior to discharge. 10. BPH; s/p TURP - Noted. 11. Muscle spasms - Resume as needed tizanidine. 12. Osteoarthritis; status post Right knee surgery - Stable. 13. DVT prophylaxis - Lovenox 40 mg subcu daily. Total time: Approximately 55 minutes. Charges/Coding Visit Charges Inpatient E&M: 46882 Init Hosp L2
--- NOTE | 2024-01-24 23:59 | ED.VIS.CHEST ---
HPI History of Present Illness Chief Complaint: Chest Pain Informant: patient and spouse/S.O. Narrative Narrative: 78-year-old male history of hypertension COPD presenting to the emergency room with chief complaint of chest pain. Patient states over the past several days he has had a viral-like respiratory illness. This afternoon he felt a heaviness in his chest and his cough worsened. He states now he has a sharp stabbing pain over the anterior aspect of his chest. It is worse with touch with movement he is afraid to cough. Patient states he can hear himself wheezing and feels rattling in his chest but nothing is coming up with his cough. He does not wear home oxygen. No reported fevers. [facility] Medical History Abnormal computed tomography angiography of heart Abnormal CT scan of lung BPH (benign prostatic hyperplasia) COPD (chronic obstructive pulmonary disease) Erectile dysfunction Essential (primary) hypertension Hyperlipidemia Nonobstructive atherosclerosis of coronary artery Obesity Osteoarthritis Home Medications fenofibrate nanocrystallized 145 mg tablet 145 mg PO DAILY 12/30/15 [History Last Taken 01/08/16 09:00] amlodipine 10 mg tablet 10 mg PO DAILY 08/31/18 [History Last Taken 09/27/18] losartan 100 mg tablet 100 mg PO DAILY 08/31/18 [History Last Taken 09/27/18] aspirin 81 mg tablet,delayed release (Adult Aspirin Regimen) 81 mg PO DAILY 09/24/18 [History Last Taken 09/27/18] pravastatin 80 mg tablet (Pravachol) 80 mg PO QHS 09/01/19 [History Last Taken Unknown] sildenafil 100 mg tablet 100 mg PO DAILY PRN sexual activity 09/04/20 [History Last Taken Unknown] hydralazine 50 mg tablet 50 mg PO DAILY 09/16/22 [History Last Taken Unknown] icosapent ethyl 1 gram capsule 2 g PO BID 09/16/22 [History Last Taken Unknown] hydrochlorothiazide 25 mg tablet 25 mg PO DAILY #90 tabs 10/24/22 [Rx Last Taken Unknown] tizanidine 4 mg tablet 4 mg PO BID PRN muscle spasticity 09/14/23 [History Last Taken Unknown] Allergy/AdvReac Type Severity Reaction Status Date / Time No Known Allergies Allergy Verified 01/24/24 21:05 Family History Mother Hypertension Father Myocardial infarction [place] 70's Surgical History History of left heart catheterization (09/27/18) History of right knee surgery History of transurethral resection of prostate (2016) Social History Smoking Status: Former smoker quit date: 10/26/92 pack-years: 20 how long ago did patient quit smokin years ago alcohol intake: current alcohol intake frequency: a few times a week substance use type: does not use caffeine: Yes Type: carbonated beverages and coffee Number of servings: 1 ROS ROS ED Constitutional Constitutional ED: Denies chills, fever(s) or weight loss Eyes Eyes: Denies change in vision or diplopia ENT ENT ED: Denies ear pain, rhinorrhea or sore throat Cardiovascular Cardiovascular: Reports chest pain; Denies orthopnea, palpitations or racing heartbeat Respiratory/Chest Respiratory/Chest: Reports cough, dyspnea and dyspnea on exertion; Denies orthopnea or sputum Gastrointestinal Gastrointestinal: Denies abdominal pain, diarrhea, nausea or vomiting Genitourinary Genitourinary ED: Denies dysuria, hematuria or urinary frequency Musculoskeletal Musculoskeletal: Denies arthralgias or myalgias Integumentary Denies abscess or rash Neurologic Neurologic: Denies headache(s) or weakness Psychiatric Psychiatric: Denies anxiety, depression, suicidal ideation or suicidal thoughts Endocrine Endocrinology: Denies polydipsia, polyphagia or polyuria Allergic/Immunologic Allergic/Immunologic ED: Denies mouth swelling, tongue swelling or urticaria EXAM Physical Exam Const Vital Signs: 01/24/24 21:05 01/24/24 21:43 01/24/24 21:36 Temperature 97.6 F L Temperature Source Temporal Pulse Rate 88 80 Respiratory Rate 26 H 16 Respiratory Effort Normal Blood Pressure 189/72 H Blood Pressure Mean 111 Pulse Ox 94 Oxygen Delivery Method Room Air Oxygen Flow Rate (L/min) 01/24/24 22:18 01/24/24 21:50 01/24/24 23:00 Temperature Temperature Source Pulse Rate 80 79 Respiratory Rate 18 18 Respiratory Effort Blood Pressure 122/97 H 134/56 H Blood Pressure Mean 105 82 Pulse Ox 91 87 91 Oxygen Delivery Method Nasal Cannula Room Air Nasal Cannula Oxygen Flow Rate (L/min) 2 2 01/24/24 23:29 01/24/24 23:41 Temperature Temperature Source Pulse Rate Respiratory Rate Respiratory Effort Blood Pressure Blood Pressure Mean Pulse Ox 91 90 Oxygen Delivery Method Nasal Cannula Nasal Cannula Oxygen Flow Rate (L/min) 3 3 Positive well nourished, well developed and obese General Appearance ED: well developed Nutritional Appearance: obese HEENT Reports normocephalic, head/scalp atraumatic and moist mucous membranes Eyes PERRL and EOMs intact bilaterally Neck no lymphadenopathy, supple and no JVD Chest Wall Chest Narrative: The anterior chest wall including the breastbone and associated cartilage is exquisitely tender. He splints with any type of movement and especially with coughing. Resp Resp Narrative: Patient has conversational dyspnea in a quiet tachypnea at rest Auscultation: rhonchi and wheezes expiratory wheezes Cardio regular rate, regular rhythm and no murmurs GI normal to inspection, nondistended, normoactive bowel sounds and non-tender Palpation: soft Back/Spine no CVA tenderness and normal ROM Extremity normal to inspection General Extremety ED: Negative for edema General Extremity: Negative for edema Neuro oriented x3 and CN's II-XII intact bilaterally Sensorium / Orientation: alert Motor Exam: strength 5/5 throughout Psych mental status grossly normal Mood & Affect: Negative for depressed or tearful Skin no rashes or lesions noted and no wounds MDM MDM MDM Narrative Medical decision making narrative: Differential diagnosis includes but not limited to ACS, pneumothorax, pneumonia, COPD exacerbation, pleural effusions. My independent or potation of the chest x-ray is no acute process. Basic blood work is fairly unremarkable glucose 111 white count 7.1 platelet count 266 troponin 12. Patient received a breathing treatment which significantly helped the pressure-like sensation in his chest and a repeat lung auscultation his wheezing is significantly diminished. There is still some expiratory wheezing noted. He received Toradol morphine Zofran for his chest pain which has improved. His EKG is nonischemic. The patient continues to have some significant conversational dyspnea. With 1 or 2 sentences the patient is already at 86% on room air. He is given supplemental oxygen at 3 L but still desats to around 88% with conversation. Patient received a dose of Solu-Medrol because of the increased change in cough received a dose of azithromycin. At this point patient will be admitted to the hospital for further management History & Record Review Discussion w/independent historian: Patient and Significant other Lab Data Attestation: I reviewed the patient's lab results. Labs: Laboratory Results - last 24 hr 01/24/24 21:15 WBC 7.1 RBC 5.14 Hgb 13.4 Hct 42.9 MCV 83.5 MCH 26.1 L MCHC 31.2 L RDW Std Deviation 39.8 RDW Coeff of Aundrea 13.1 Plt Count 266 MPV 9.8 Immature Gran % (Auto) 0.300 Neut % (Auto) 59.2 Lymph % (Auto) 22.2 [place] % (Auto) 10.0 Eos % (Auto) 6.8 H Baso % (Auto) 1.5 H Absolute Neuts (auto) 4.2 Absolute Lymphs (auto) 1.58 Nucleated RBC % 0 Sodium 136 Potassium 4.5 Chloride 102 Carbon Dioxide 30.0 Anion Gap 4 L BUN 21 H Creatinine 1.30 Estim Creat Clear Calc 50.65 Est GFR (MDRD) Af Amer 69 Est GFR (MDRD) Non-Af 57 L BUN/Creatinine Ratio 16.2 Glucose 111 H Calcium 9.7 Troponin I High Sens 12 Radiography Diagnostic Testing: Clinical Impression(s) from Imaging Studies Chest X-Ray 01/24/24 22:03 IMPRESSION: No evidence of active intrathoracic disease. Electronically Signed: Zeny Kaur MD at 22:12 EDT , EKG Initial EKG: Attestation: I personally reviewed and interpreted this EKG as follows: Comments: Normal sinus rhythm ventricular rate of 86 bpm Discharge Plan Dx/Rx/DC Orders Clinical Impression: Acute bronchitis with bronchospasm, Essential (primary) hypertension, Acute hypoxemic respiratory failure, Obesity, Acute costochondritis Disposition Disposition: [facility]
[2024-01-25] VITALS (14 sets, daily range): BP systolic 127–172; BP diastolic 56–93; PULSE 80–96; RESP 14–22; TEMP 36.4–37.1; O2SAT 91–96; BMI 30.9
[2024-01-25] MEDS: Morphine 2 MG/ML Syringe IV (00:56)
[2024-01-25] MEDS: Ibuprofen 400 MG Tablet PO ×3 (02:08→19:53)
[2024-01-25] MEDS: 0.9% Normal Saline (1000mL) 1,000 ML 70 ML IV (02:12)
[2024-01-25] MEDS: Albuterol 2.5 MG/3 ML VIAL.NEB. INHALATION ×3 (02:17→20:49)
[2024-01-25 05:29] LABS: Absolute Lymphocyte Count 0.55 X10^3/uL (0.83-4.51); Absolute Neutrophil Count 9.6 X10^3/uL (2.0-7.7); Basophil# 0.07 X10^3/uL; Basophil% 0.7 % (0-1); Eosinophil# 0.04 X10^3/uL; Eosinophils% 0.4 % (0-5); Hematocrit 41.1 % (40-54); Hemoglobin 12.6 g/dL (13.0-16.5); Lymphocyte # 0.55 X10^3/ul (0.83-4.51); Lymphocyte % 5.3 % (19-41); Mean Corp Hgb Conc 30.7 g/dL (32-36); Mean Corpuscular Hgb 25.8 pg (27.0-32.0); Mean Platelet Vol. 9.4 fl (6.2-12.0); Monocyte# 0.12 X10^3/uL; Monocyte% 1.2 % (0-10); NRBC Flagged by Analyzer 0 % (0-5); Neutrophil # 9.56 X10^3/uL (2.7-7.7); Neutrophil % 91.8 % (47-70); POSITIVE DIFFERENTIAL YES; Platelet Count 224 K/mm3 (150-450); RBC Distribution Width CV 13.2 % (11.6-14.6); RBC Distribution Width SD 40.5 fl (35.1-43.9); Red Blood Count 4.89 M/mm3 (4.6-6.2); White Blood Count 10.4 K/mm3 (4.4-11.0)
[2024-01-25 05:41] LABS: Blood Gas Specimen Type VEN; O2 Delivery Device Cannula; SITE Not entered; VBG BASE EXCESS 0 mmol/L (-1.0-3.5); VBG Bicarbonate 27 mmol/L (22-26); VBG PO2 109 mmHg (25-40); VBG SO2 97 % (50-70); VBG TCO2 29 mmol/L (23-33); VBG pH 7.27 (7.32-7.42)
[2024-01-25 05:54] LABS: ALB/GLOB Ratio 1.2 RATIO (0.9-2.4); AST(SGOT) 12 U/L (15-37); Alanine Aminotransfer ALT/SGPT 19 U/L (16-61); Albumin, Serum 3.6 g/dL (3.2-5.0); Alkaline Phosphatase 48 U/L (45-117); Anion Gap 5 (5-15); BUN 22 mg/dL (7-18); BUN/Creat Ratio 15.2 RATIO (10-20); Calcium,Total 9.1 mg/dL (8.5-10.1); Chloride 103 mmol/L (98-107); Creatinine, Serum 1.45 mg/dL (0.70-1.30); EST Glomerular Filtration Rate 50 mL/min (>60); Est Glom Filt Rate - Afr Amer 61 mL/min (>60); Estimated Creatinine Clearance 45.14 ml/min; Globulin 3.1 g/dL (2.2-4.2); Glucose 174 mg/dL (74-106); Magnesium 1.9 mg/dL (1.6-2.6); Phosphorus 3.2 mg/dL (2.5-4.9); Potassium 4.3 mmol/L (3.5-5.1); Protein, Total 6.7 g/dL (6.4-8.2); Sodium Level 136 mmol/L (136-145)
[2024-01-25] MEDS: Enoxaparin 40 MG/0.4 ML Syringe SC (09:18)
[2024-01-25] MEDS: Famotidine 20 MG Tablet PO ×2 (09:18→20:00)
[2024-01-25] MEDS: Cholecalciferol (Vit D3) 125 MCG CAPSULE (5,000 UNITS) PO (09:18)
[2024-01-25] MEDS: guaiFENesin 600 MG Tablet PO ×2 (09:18→20:00)
[2024-01-25] MEDS: Zinc Sulfate 50 mg zinc (220 mg) ORAL capsule PO (09:18)
[2024-01-25] MEDS: hydrALAZINE 50 MG Tablet PO (09:18)
[2024-01-25] MEDS: Aspirin E.C. 81 MG Tablet PO (09:18)
[2024-01-25] MEDS: Lactobacillis Acidophilus 2 CAP PO ×2 (09:19→20:00)
[2024-01-25] MEDS: Ascorbic Acid 500 MG Tablet 1000 MG PO ×2 (09:19→16:36)
[2024-01-25] MEDS: amLODIPine 10 MG Tablet PO (09:19)
[2024-01-25] MEDS: Losartan Potassium 100 MG Tablet PO (09:19)
[2024-01-25] MEDS: MethylPREDNISolone 125 MG/2 ML Vial 60 MG IV ×2 (09:19→23:06)
[2024-01-25] MEDS: hydroCHLOROthiazide 25 MG Tablet PO (09:19)
[2024-01-25] MEDS: Fenofibrate 145 MG Tablet PO (09:20)
[2024-01-25] MEDS: Doxycycline 100 MG in Dextrose 5%-Water (250mL Bag) 250 ML 250 MG IV ×2 (09:33→21:40)
--- NOTE | 2024-01-25 11:36 | CASEMGMT ---
KEO VELASQUEZ Assessment Face to Face with patient for initial transition planning/care coordination assessment. KEO VELASQUEZ introduced self and role at [facility], pt voices understanding. Pt is A&Ox4 and is resting comfortably in bed and is calm. Care providers, pharmacy, and demographics verified. Admitting dx: Acute Exacerbation of COPD LACE Strata: 2 PCP: Felicia Specialists: Willie Preferred Pharmacy: [facility] Insurance: [employer] A/B, [place] Prescription Benefit: Yes LNOK: Jaime Russ (W), Crys Nima (Josseline) Living Arrangements: Pt lives with his in a 2 story home with a BM with HR throughout with 3 steps to enter with HR. Pt denies issues. ADLs/IADLs: States ind Transportation: Self, DME: Crutches. Cane. Walk in shower with GB and seat. Pt is currently on additional O2. Pt denies wearing CPAP at night. A verbal list of local in-network DME companies provided to the pt. Pt chose [employer] for potential home oxygen needs. CM to follow. HHC/SNF: Denies history or needs Pt?s goal: Home Plan: 6-click is 20. PT eval is pending. Pt wishes to return home at time of DC. Pt refuses SNF, OP therapy, and HHC at time of assessment. CM to follow oxygen and therapy. CM to follow for safe DC home from [facility]. Rod Hogan RN, CM
[2024-01-25] MEDS: 0.9% Normal Saline (1000mL) 1,000 ML 125 ML IV ×2 (14:01→20:00)
--- NOTE | 2024-01-25 15:14 | PN_ITS ---
Subjective Subjective Patient seen and examined. He is wheezing complains of feeling short of breath. He has an occasional nonproductive cough. He states he has never been formally diagnosed with COPD. Review of systems otherwise negative. Objective Data Objective Data Vital Signs: Vital Signs Temp Pulse Resp BP Pulse Ox O2 Del Method O2 Flow Rate 97.8 F 91 20 H 130/93 H 94 Nasal Cannula 3 01/25/24 14:08 01/25/24 14:08 01/25/24 14:08 01/25/24 14:08 01/25/24 14:08 01/25/24 14:08 01/25/24 14:08 Oxygen Flow Rate (L/min) 3 Oxygen Delivery Method Nasal Cannula Weight: 194 lb 14.218 oz Body Mass Index (BMI) 30.9 Intake & Output: Intake and Output for Last 24 Hours 01/23/24 01/24/24 01/25/24 23:59 23:59 23:59 Intake Total 1224.08 / 1224.08 Balance 1224.08 / 1224.08 Lab / Micro Data 01/25/24 05:10 01/25/24 05:10 Labs: Laboratory Results - last 24 hr 01/24/24 21:15: WBC 7.1, RBC 5.14, Hgb 13.4, Hct 42.9, MCV 83.5, MCH 26.1 L, MCHC 31.2 L, RDW Std Deviation 39.8, RDW Coeff of Aundrea 13.1, Plt Count 266, MPV 9.8, Immature Gran % (Auto) 0.300, Neut % (Auto) 59.2, Lymph % (Auto) 22.2, [place] % (Auto) 10.0, Eos % (Auto) 6.8 H, Baso % (Auto) 1.5 H, Absolute Neuts (auto) 4.2, Absolute Lymphs (auto) 1.58, Nucleated RBC % 0, Sodium 136, Potassium 4.5, Chloride 102, Carbon Dioxide 30.0, Anion Gap 4 L, BUN 21 H, Creatinine 1.30, Estim Creat Clear Calc 50.65, Est GFR (MDRD) Af Amer 69, Est GFR (MDRD) Non-Af 57 L, BUN/Creatinine Ratio 16.2, Glucose 111 H, Calcium 9.7, Troponin I High Sens 12 01/25/24 05:10: WBC 10.4, RBC 4.89, Hgb 12.6 L, Hct 41.1, MCV 84.0, MCH 25.8 L, MCHC 30.7 L, RDW Std Deviation 40.5, RDW Coeff of [place]und[place] 13.2, Plt Count 224, MPV 9.4, Immature Gran % (Auto) 0.600, Neut % (Auto) 91.8 H, Lymph % (Auto) 5.3 L, [place] % (Auto) 1.2, Eos % (Auto) 0.4, Baso % (Auto) 0.7, Absolute Neuts (auto) 9.6 H, Absolute Lymphs (auto) 0.55 L, Nucleated RBC % 0, Sodium 136, Potassium 4.3, Chloride 103, Carbon Dioxide 28.0, Anion Gap 5, BUN 22 H, Creatinine 1.45 H , Estim Creat Clear Calc 45.14, Est GFR (MDRD) Af Amer 61, Est GFR (MDRD) Non-Af 50 L, BUN/Creatinine Ratio 15.2, Glucose 174 H, Calcium 9.1, Phosphorus 3.2, Magnesium 1.9, Total Bilirubin 0.20, AST 12 L, ALT 19, Alkaline Phosphatase 48, Total Protein 6.7, Albumin 3.6, Globulin 3.1, Albumin/Globulin Ratio 1.2, TSH 0.70 Micro: Microbiology 01/24/24 21:46 Mucosa - Nose SARS-CoV-2, Influenza & RSV (PCR) - Final ABG Data ABG results: ABG 01/25/24 05:37 Specimen Type [facility] Sample Site Not entered O2 % 3.0 VBG pH 7.27 L VBG pO2 109 H VBG HCO3 27 H VBG Total CO2 29 VBG O2 Sat (Calc) 97 H VBG Base Excess 0 POC Mix VBG pCO2 Pt Tmp 59.0 H O2 Delivery Device Cannula Radiography Diagnostic Testing: Radiology Impression Chest X-Ray 01/24/24 22:03 IMPRESSION: No evidence of active intrathoracic disease. Electronically Signed: Zeny Kaur MD at 22:12 EDT , Physical Exam Const alert and oriented x3 Constitutional Narrative: in mild distress due to shortness of breath General Appearance: cooperative and well developed HEENT normocephalic, moist oral mucous membranes and oropharynx normal Eyes PERRL and EOMs intact bilaterally Neck no lymphadenopathy and supple Lymph Lymphatic: no lymphadenopathy noted and no lymphedema noted Resp Resp Narrative: lung sound tight on auscultation, moderate bilateral wheezing, few crackles. On 3L of oxygen by nasal canula Cardio regular rate, regular rhythm, S1 normal heart sound, S2 normal heart sound and no murmurs GI normal to inspection, nondistended, normoactive bowel sounds, soft to palpation and non-tender Extremity normal capillary refill, no clubbing, cyanosis or edema and no calf tenderness General Extremity: no tenderness to palpation of joints or extremities Skin General Skin Exam: no breakdown Neuro CN's II-XII intact bilaterally and no focal motor deficits Motor Exam: strength 5/5 throughout and general weakness Psych thought process normal, cooperative and affect normal Appearance: appropriate Assessment & Plan Assessment/Plan (1) COPD exacerbation: PLAN: Plan #Acute COPD exacerbation * currently on 3L of oxy gen * on IV solumedrol, IV azithromycin and breathing treatment with bronchodilators * Has an extensive history of smoking but says he quit a few years ago. * Will need to establish care with pulmonology. * Titrate oxygen to maintain saturation above 90%. * #Costochondritis: Likely due to recent upper viral respiratory infection. On p.o. Tylenol as needed for pain #Elevated creatinine: Creatinine is 1.45. Baseline creatinine is around 1.2. Will monitor for now. Encourage oral hydration. #Benign essential hypertension: On amlodipine and hydrochlorothiazide as well as hydralazine #Hyperlipidemia: On icosapent and fenofibrate #Peripheral vascular disease: On aspirin and fenofibrate #BPH: S/p TURP DVT prophylaxis: Lovenox Charges/Coding Visit Charges Inpatient E&M: 00452 Subs Hosp L2
[2024-01-25] MEDS: Ensure Plus High Protein 120 ML LIQUID PO (16:36)
[2024-01-26] VITALS (10 sets, daily range): BP systolic 134–156; BP diastolic 61–80; PULSE 77–98; RESP 17–18; TEMP 36.4–36.7; O2SAT 94–99; BMI 30.7
[2024-01-26] MEDS: 0.9% Normal Saline (1000mL) 1,000 ML 125 ML IV ×3 (04:23→20:46)
[2024-01-26] MEDS: Ibuprofen 400 MG Tablet PO ×2 (06:16→19:36)
[2024-01-26 06:50] LABS: Absolute Lymphocyte Count 0.84 X10^3/uL (0.83-4.51); Absolute Neutrophil Count 9.5 X10^3/uL (2.0-7.7); Basophil# 0.02 X10^3/uL; Basophil% 0.2 % (0-1); Hematocrit 37.5 % (40-54); Hemoglobin 11.7 g/dL (13.0-16.5); Lymphocyte # 0.84 X10^3/ul (0.83-4.51); Lymphocyte % 7.7 % (19-41); Mean Corp Hgb Conc 31.2 g/dL (32-36); Mean Corpuscular Hgb 26.1 pg (27.0-32.0); Mean Corpuscular Volume 83.5 fL (80-94); Monocyte# 0.41 X10^3/uL; Monocyte% 3.7 % (0-10); NRBC Flagged by Analyzer 0 % (0-5); Neutrophil # 9.53 X10^3/uL (2.7-7.7); Neutrophil % 87.1 % (47-70); Platelet Count 233 K/mm3 (150-450); RBC Distribution Width CV 13.2 % (11.6-14.6); RBC Distribution Width SD 40.7 fl (35.1-43.9); Red Blood Count 4.49 M/mm3 (4.6-6.2); White Blood Count 10.9 K/mm3 (4.4-11.0)
[2024-01-26 07:58] LABS: Anion Gap 3 (5-15); BUN 26 mg/dL (7-18); BUN/Creat Ratio 23.2 RATIO (10-20); Calcium,Total 9.4 mg/dL (8.5-10.1); Chloride 106 mmol/L (98-107); Creatinine, Serum 1.12 mg/dL (0.70-1.30); EST Glomerular Filtration Rate 68 mL/min (>60); Est Glom Filt Rate - Afr Amer 82 mL/min (>60); Estimated Creatinine Clearance 58.19 ml/min; Glucose 153 mg/dL (74-106); Potassium 4.8 mmol/L (3.5-5.1); Sodium Level 135 mmol/L (136-145)
[2024-01-26] MEDS: Albuterol 2.5 MG/3 ML VIAL.NEB. INHALATION (08:12)
[2024-01-26] MEDS: hydrALAZINE 50 MG Tablet PO (09:57)
[2024-01-26] MEDS: Ascorbic Acid 500 MG Tablet 1000 MG PO ×2 (09:58→16:58)
[2024-01-26] MEDS: Lactobacillis Acidophilus 2 CAP PO ×2 (09:58→20:44)
[2024-01-26] MEDS: Aspirin E.C. 81 MG Tablet PO (09:58)
[2024-01-26] MEDS: Zinc Sulfate 50 mg zinc (220 mg) ORAL capsule PO (09:59)
[2024-01-26] MEDS: Cholecalciferol (Vit D3) 125 MCG CAPSULE (5,000 UNITS) PO (09:59)
[2024-01-26] MEDS: guaiFENesin 600 MG Tablet PO ×2 (09:59→20:44)
[2024-01-26] MEDS: hydroCHLOROthiazide 25 MG Tablet PO (09:59)
[2024-01-26] MEDS: Losartan Potassium 100 MG Tablet PO (09:59)
[2024-01-26] MEDS: amLODIPine 10 MG Tablet PO (09:59)
[2024-01-26] MEDS: Enoxaparin 40 MG/0.4 ML Syringe SC (09:59)
[2024-01-26] MEDS: Fenofibrate 145 MG Tablet PO (10:00)
[2024-01-26] MEDS: Famotidine 20 MG Tablet PO ×2 (10:00→20:44)
[2024-01-26] MEDS: MethylPREDNISolone 125 MG/2 ML Vial 60 MG IV ×2 (10:20→20:44)
[2024-01-26] MEDS: Doxycycline 100 MG in Dextrose 5%-Water (250mL Bag) 250 ML 250 MG IV ×2 (10:20→20:47)
--- NOTE | 2024-01-26 11:09 | PN_ITS ---
Subjective Subjective Patient seen and examined. He says he is feeling better today. His breathing has improved. He is on room air. Wheezing is much better. HE is still having some chest pain with coughing. Review of systems otherwise negative. Objective Data Objective Data Vital Signs: Vital Signs Temp Pulse Resp BP Pulse Ox O2 Del Method O2 Flow Rate 97.8 F 84 17 143/73 H 96 Nasal Cannula 3 01/26/24 07:49 01/26/24 09:57 01/26/24 08:10 01/26/24 09:57 01/26/24 07:49 01/26/24 09:17 01/26/24 09:17 Oxygen Flow Rate (L/min) 3 Oxygen Delivery Method Nasal Cannula Weight: 193 lb 1.999 oz Body Mass Index (BMI) 30.7 Intake & Output: Intake and Output for Last 24 Hours 01/24/24 01/25/24 01/26/24 23:59 23:59 23:59 Intake Total 2229.91 / 2529.91 1500 / 1500 Balance 2229.91 / 2529.91 1500 / 1500 Lab / Micro Data 01/26/24 06:14 01/26/24 06:14 Labs: Laboratory Results - last 24 hr 01/26/24 06:14: WBC 10.9, RBC 4.49 L, Hgb 11.7 L, Hct 37.5 L, MCV 83.5, MCH 26.1 L, MCHC 31.2 L, RDW Std Deviation 40.7, RDW Coeff of Aundrea 13.2, Plt Count 233, MPV 10.0, Immature Gran % (Auto) 1.300 H, Neut % (Auto) 87.1 H, Lymph % (Auto) 7.7 L, [place] % (Auto) 3.7, Eos % (Auto) 0.0, Baso % (Auto) 0.2, Absolute Neuts (auto) 9.5 H, Absolute Lymphs (auto) 0.84, Nucleated RBC % 0, Sodium 135 L, Potassium 4.8, Chloride 106, Carbon Dioxide 26.0, Anion Gap 3 L, BUN 26 H, Creatinine 1.12, Estim Creat Clear Calc 58.19, Est GFR (MDRD) Af Amer 82, Est GFR (MDRD) Non-Af 68, BUN/Creatinine Ratio 23.2 H, Glucose 153 H, Calcium 9.4 Micro: Microbiology 03/31/24 21:46 Mucosa - Nose SARS-CoV-2, Influenza & RSV (PCR) - Final Physical Exam Const alert, oriented x3 and no apparent distress General Appearance: cooperative and well developed HEENT normocephalic, head/scalp atraumatic, hearing grossly normal bilaterally, moist oral mucous membranes and oropharynx normal Eyes PERRL and EOMs intact bilaterally Neck no lymphadenopathy and supple Lymph Lymphatic: no lymphadenopathy noted and no lymphedema noted Resp Resp Narrative: lungs was clear to auscultation today. Lungs don't sounds as tight as yesterday. On room air today. Cardio regular rate, regular rhythm, S1 normal heart sound, S2 normal heart sound and no murmurs GI normal to inspection, nondistended, normoactive bowel sounds, soft to palpation, non-tender and non-distended GI Narrative: Obese. Extremity normal to inspection, full ROM, normal capillary refill, no clubbing, cyanosis or edema and no calf tenderness General Extremity: no tenderness to palpation of joints or extremities Skin General Skin Exam: no breakdown Neuro oriented x3, CN's II-XII intact bilaterally, moves all extremities and no focal motor deficits Sensorium / Orientation: awake, alert, oriented to person, oriented to place and oriented to time Speech: speech normal Motor Exam: strength 5/5 throughout and general weakness Psych thought process normal, cooperative and affect normal Appearance: appropriate Assessment & Plan Assessment/Plan (1) COPD exacerbation: PLAN: Plan #Acute COPD exacerbation * now on room air. Feeling much better. Wheezing has improved significantly. * on IV solumedrol, IV azithromycin and breathing treatment with bronchodilators * Has an extensive history of smoking but says he quit a few years ago. * Will need to establish care with pulmonology. * Titrate oxygen to maintain saturation above 90%. * #Costochondritis: Likely due to recent upper viral respiratory infection. On p.o. Tylenol as needed for pain #Elevated creatinine:Cr is down to 1.12 today. Baseline creatinine is around 1.2. Will monitor for now. Encourage oral hydration. #Benign essential hypertension: On amlodipine and hydrochlorothiazide as well as hydralazine #Hyperlipidemia: On icosapent and fenofibrate #Peripheral vascular disease: On aspirin and fenofibrate #BPH: S/p TURP DVT prophylaxis: Lovenox Disposition: Anticipate discharge tomorrow. Charges/Coding Visit Charges Inpatient E&M: 92576 Subs Hosp L2
[2024-01-27 02:02] VITALS: BP 141/81; PULSE 80; RESP 18; TEMP 36.8; O2SAT 95
[2024-01-27] MEDS: 0.9% Normal Saline (1000mL) 1,000 ML 125 ML IV (05:08)
[2024-01-27 05:29] VITALS: BMI 30.6
[2024-01-27 07:00] LABS: Absolute Lymphocyte Count 0.93 X10^3/uL (0.83-4.51); Absolute Neutrophil Count 8.7 X10^3/uL (2.0-7.7); Basophil# 0.01 X10^3/uL; Basophil% 0.1 % (0-1); Hematocrit 34.9 % (40-54); Hemoglobin 11.1 g/dL (13.0-16.5); Lymphocyte # 0.93 X10^3/ul (0.83-4.51); Lymphocyte % 9.1 % (19-41); Mean Corp Hgb Conc 31.8 g/dL (32-36); Mean Corpuscular Hgb 26.4 pg (27.0-32.0); Mean Corpuscular Volume 82.9 fL (80-94); Mean Platelet Vol. 9.7 fl (6.2-12.0); Monocyte# 0.51 X10^3/uL; NRBC Flagged by Analyzer 0 % (0-5); Neutrophil # 8.65 X10^3/uL (2.7-7.7); Neutrophil % 84.9 % (47-70); Platelet Count 212 K/mm3 (150-450); RBC Distribution Width CV 13.4 % (11.6-14.6); RBC Distribution Width SD 40.6 fl (35.1-43.9); Red Blood Count 4.21 M/mm3 (4.6-6.2); White Blood Count 10.2 K/mm3 (4.4-11.0)
[2024-01-27 07:36] LABS: Anion Gap 5 (5-15); BUN 27 mg/dL (7-18); BUN/Creat Ratio 24.5 RATIO (10-20); Calcium,Total 8.8 mg/dL (8.5-10.1); Chloride 107 mmol/L (98-107); EST Glomerular Filtration Rate 69 mL/min (>60); Est Glom Filt Rate - Afr Amer 84 mL/min (>60); Estimated Creatinine Clearance 59.22 ml/min; Glucose 134 mg/dL (74-106); Potassium 4.5 mmol/L (3.5-5.1); Sodium Level 138 mmol/L (136-145)
[2024-01-27 08:13] VITALS: BP 151/73; PULSE 76; RESP 16; TEMP 36.5; O2SAT 96
[2024-01-27 08:53] VITALS: PULSE 76
[2024-01-27] MEDS: Aspirin E.C. 81 MG Tablet PO (08:53)
[2024-01-27] MEDS: hydrALAZINE 50 MG Tablet PO (08:53)
[2024-01-27] MEDS: Ascorbic Acid 500 MG Tablet 1000 MG PO (08:54)
[2024-01-27] MEDS: Losartan Potassium 100 MG Tablet PO (08:55)
[2024-01-27] MEDS: Lactobacillis Acidophilus 2 CAP PO (08:55)
[2024-01-27] MEDS: hydroCHLOROthiazide 25 MG Tablet PO (08:56)
[2024-01-27] MEDS: Enoxaparin 40 MG/0.4 ML Syringe SC (08:56)
[2024-01-27] MEDS: amLODIPine 10 MG Tablet PO (08:57)
[2024-01-27] MEDS: Fenofibrate 145 MG Tablet PO (08:57)
[2024-01-27] MEDS: Famotidine 20 MG Tablet PO (08:57)
[2024-01-27] MEDS: guaiFENesin 600 MG Tablet PO (08:57)
[2024-01-27] MEDS: Cholecalciferol (Vit D3) 125 MCG CAPSULE (5,000 UNITS) PO (08:58)
[2024-01-27] MEDS: Zinc Sulfate 50 mg zinc (220 mg) ORAL capsule PO (08:58)
--- NOTE | 2024-01-27 10:26 | DCINST_ITS ---
Discharge Instructions Diet Discharge Diet: Low fat / Low cholesterol Activity Discharge Activity: Return to Normal Activity Weight Bearing Status: Weight bearing as tolerated Dressing / Incision Call your doctor if you observe: Fever of 101 or Higher, Shortness of breath, Dizziness, Swelling in the ankles and Chest pain Follow Up Care Test Results: Test results from this visit will be discussed in further detail at your follow- up appointment, if applicable. Discharge Plan Admission Admit Date/Time: 01/25/24 00:19 Primary Reason for Your Visit: COPD exacerbation Attending Provider: Jackeline Bernal Primary Care Provider: Niurka Duarte Consulting Providers: Soham Candelaria Instructions Patient Instructions: COPD: Using Inhalers, COPD Meds Discharge Orders/Prescriptions Prescriptions: New prednisone 20 mg tablet 40 mg PO DAILY Qty: 10 0RF Combivent Respimat 20-100 mcg/actuation mist 1 puff inhalation Q6H Qty: 4 1RF Continued amlodipine 10 mg tablet 10 mg PO DAILY losartan 100 mg tablet 100 mg PO DAILY pravastatin [Pravachol] 80 mg tablet 80 mg PO QHS aspirin [Adult Aspirin Regimen] 81 mg tablet,delayed release (DR/EC) 81 mg PO DAILY Hold Instructions: pt has not been taking sildenafil 100 mg tablet 100 mg PO DAILY PRN (Reason: sexual activity) Hold Instructions: not currently taking Patient Comments: take as directed once daily if needed hydralazine 50 mg tablet 50 mg PO DAILY Patient Comments: TAKE 1 TABLET BY MOUTH EVERY MORNING icosapent ethyl 1 gram capsule 2 g PO BID tizanidine 4 mg tablet 4 mg PO BID PRN (Reason: muscle spasticity) fenofibrate nanocrystallized 145 MG tablet 145 mg PO DAILY Patient Comments: CHOLESTEROL hydrochlorothiazide 25 mg tablet 25 mg PO DAILY Qty: 90 3RF Referrals / Follow Up: Amado Gama DO [Med Staff - Active Staff] - Within 2 Weeks Niurka Duarte DO [Primary Care Provider] - Within 1 Week Disposition Disposition (needs filled in before D/C Order can be placed): Home, Self Care
[2024-01-27 10:44] VITALS: O2SAT 93; O2SAT 95
--- NOTE | 2024-01-27 10:48 | CASEMGMT ---
Pt did not qualify for any home O2 per the non destructive testing scientist. Pt DC placed. RN CM to pt room and pt states that he still feels safe and comfortable discharging home without HHC or OP Therapy. Pt denies further needs.
--- NOTE | 2024-01-27 11:06 | PHA.DC.MR.R ---
Pharmacy [place] Med Reconciliation Pharmacy Service has performed discharge medication reconciliation for this patient. Medication education papers prepared, patient discharged when counseling was attempted. The patient's discharge medication list was reviewed for discrepancies and discrepancies were resolved. Medications at Discharge Home Medications fenofibrate nanocrystallized 145 mg tablet 145 mg PO DAILY 12/30/15 amlodipine 10 mg tablet 10 mg PO DAILY 08/31/18 losartan 100 mg tablet 100 mg PO DAILY 08/31/18 aspirin 81 mg tablet,delayed release (Adult Aspirin Regimen) 81 mg PO DAILY 09/24/18 pravastatin 80 mg tablet (Pravachol) 80 mg PO QHS 09/01/19 sildenafil 100 mg tablet 100 mg PO DAILY PRN sexual activity 09/04/20 hydralazine 50 mg tablet 50 mg PO DAILY 09/16/22 icosapent ethyl 1 gram capsule 2 g PO BID 09/16/22 hydrochlorothiazide 25 mg tablet 25 mg PO DAILY #90 tabs 10/24/22 tizanidine 4 mg tablet 4 mg PO BID PRN muscle spasticity 09/14/23 ipratropium 20 mcg-albuterol 100 mcg/actuation mist for inhalation (Combivent Respimat) 1 puff inhalation Q6H #4 grams 01/27/24 prednisone 20 mg tablet 40 mg (2 x 20 mg) PO DAILY #10 tabs 01/27/24
--- NOTE | 2024-01-27 13:03 | NURSING ---
All documentation by student nurse, Bella Awad, reviewed by director community health nursing, Sugey HOANGN, RN.
--- NOTE | 2024-01-27 15:11 | DS.PCM_ITS ---
Providers Date of Admission: 01/25/24 Date of Discharge: 01/27/24 Primary Care Physician: Dr. Niurka Duarte DO Reason For Visit: ACUTE EXACERBATION OF COPD WITH RESP INSUFFICIENCY Diagnosis Discharge Diagnosis (1) COPD exacerbation: Status: Chronic Code(s): J44.1 - Chronic obstructive pulmonary disease with (acute) exacerbation Plan #Acute COPD exacerbation * now on room air. Feeling much better. Wheezing has improved significantly. * on IV solumedrol, IV azithromycin and breathing treatment with bronchodilators * Has an extensive history of smoking but says he quit a few years ago. * Will need to establish care with pulmonology. * Titrate oxygen to maintain saturation above 90%. * #Costochondritis: Likely due to recent upper viral respiratory infection. On p.o. Tylenol as needed for pain #Elevated creatinine:Cr is down to 1.12 today. Baseline creatinine is around 1.2. Will monitor for now. Encourage oral hydration. #Benign essential hypertension: On amlodipine and hydrochlorothiazide as well as hydralazine #Hyperlipidemia: On icosapent and fenofibrate #Peripheral vascular disease: On aspirin and fenofibrate #BPH: S/p TURP DVT prophylaxis: Lovenox Disposition: Anticipate discharge tomorrow. Medications at Discharge Home Medications fenofibrate nanocrystallized 145 mg tablet 145 mg PO DAILY 12/30/15 amlodipine 10 mg tablet 10 mg PO DAILY 08/31/18 losartan 100 mg tablet 100 mg PO DAILY 08/31/18 aspirin 81 mg tablet,delayed release (Adult Aspirin Regimen) 81 mg PO DAILY 09/24/18 pravastatin 80 mg tablet (Pravachol) 80 mg PO QHS 09/01/19 sildenafil 100 mg tablet 100 mg PO DAILY PRN sexual activity 09/04/20 hydralazine 50 mg tablet 50 mg PO DAILY 09/16/22 icosapent ethyl 1 gram capsule 2 g PO BID 09/16/22 hydrochlorothiazide 25 mg tablet 25 mg PO DAILY #90 tabs 10/24/22 tizanidine 4 mg tablet 4 mg PO BID PRN muscle spasticity 09/14/23 ipratropium 20 mcg-albuterol 100 mcg/actuation mist for inhalation (Combivent Respimat) 1 puff inhalation Q6H #4 grams 01/27/24 prednisone 20 mg tablet 40 mg (2 x 20 mg) PO DAILY #10 tabs 01/27/24 Hospital Course Operations None Procedures None Summary of Care Provided Minutes Spent on Discharge: 55 Hospital Course: Patient is a 78-year-old male with past medical history as outlined including a history of nicotine dependence but quit about 10 years ago. He said he had never been diagnosed with COPD. He was admitted to the ED on 01/24/2024 with a complaint of shortness of breath and chest pain. His symptoms are started about 2 to 3 days prior to admission after he had a viral upper respiratory tract infection. However his shortness of breath did not resolve and it persisted for him being present on exertion and being present at rest. He had assisted wheezing and pleuritic chest pain which was worsened with coughing. Chest pain was reported to stable with palpation. He denied any fever or chills, nausea or vomiting. Chest x-ray showed no acute cardiopulmonary process. He was admitted and managed for acute COPD exacerbation. He was started on IV Solu-Medrol and breathing treatments with bronchodilators as well as IV azithromycin and doxycycline. He was initially requiring 2 to 3 L of oxygen. His shortness of breath gradually improved and he felt much better. He was weaned down to room air and his wheezing resolved. He remained stable and was discharged home on 01/27/2024. He was discharged with a prescription for Combivent inhaler as well as p.o. prednisone 40 mg daily x 5 days. He is to follow-up with his primary care doctor within 1 to 2 weeks. He was also referred to pulmonology for evaluation for COPD. He had a walking pulse ox and showed that he did not require any home oxygen. Patient seen and examined prior to discharge. He felt much better and was eager to be discharged home. Review of systems otherwise negative. Labs and vitals reviewed. Home medication reviewed and reconciled. Physical Exam Const alert, oriented x3 and no apparent distress General Appearance: cooperative, comfortable, well kempt and well developed HEENT normocephalic, head/scalp atraumatic, hearing grossly normal bilaterally, moist oral mucous membranes and oropharynx normal Mouth: oral and palatal mucosa normal Eyes PERRL, EOMs intact bilaterally and conjunctivae normal Neck no lymphadenopathy and supple Lymph Lymphatic: no lymphadenopathy noted and no lymphedema noted Resp Resp Narrative: lungs was clear to auscultation today. No wheezing or crackles. On room air. Auscultation: wheezes Cardio regular rate, regular rhythm, S1 normal heart sound, S2 normal heart sound and no murmurs GI normal to inspection, nondistended, normoactive bowel sounds, soft to palpation, non-tender and non-distended GI Narrative: Obese. Extremity normal to inspection, full ROM, normal capillary refill, no clubbing, cyanosis or edema and no calf tenderness General Extremity: no tenderness to palpation of joints or extremities Skin no rashes or lesions noted Skin Narrative: General Skin Exam: no breakdown Neuro oriented x3, CN's II-XII intact bilaterally, moves all extremities and no focal motor deficits Sensorium / Orientation: awake, alert, oriented to person, oriented to place and oriented to time Speech: speech normal Motor Exam: strength 5/5 throughout and general weakness Psych thought process normal, cooperative and affect normal Appearance: appropriate Weight / BMI Weight Weight: 192 lb 14.472 oz Body Mass Index (BMI) 30.6 ABG / Lab / Microbiology Data 01/27/24 06:33 01/27/24 06:33 Laboratory: Laboratory Results - last 24 hr 01/27/24 06:33: WBC 10.2, RBC 4.21 L, Hgb 11.1 L, Hct 34.9 L, MCV 82.9, MCH 26.4 L, MCHC 31.8 L, RDW Std Deviation 40.6, RDW Coeff of Aundrea 13.4, Plt Count 212, MPV 9.7, Immature Gran % (Auto) 0.900, Neut % (Auto) 84.9 H, Lymph % (Auto) 9.1 L, [place] % (Auto) 5.0, Eos % (Auto) 0.0, Baso % (Auto) 0.1, Absolute Neuts (auto) 8.7 H, Absolute Lymphs (auto) 0.93, Nucleated RBC % 0, Sodium 138, Potassium 4.5, Chloride 107, Carbon Dioxide 26.0, Anion Gap 5, BUN 27 H, Creatinine 1.10, Estim Creat Clear Calc 59.22, Est GFR (MDRD) Af Amer 84, Est GFR (MDRD) Non-Af 69, BUN/Creatinine Ratio 24.5 H, Glucose 134 H, Calcium 8.8 Microbiology: Microbiology 01/24/24 21:46 Mucosa - Nose SARS-CoV-2, Influenza & RSV (PCR) - Final D/C Instructions Discharge Diet: Low fat / Low cholesterol Discharge Activity: Return to Normal Activity Weight Bearing Status: Weight bearing as tolerated Call your doctor if you observe: Fever of 101 or Higher, Shortness of breath, Dizziness, Swelling in the ankles and Chest pain Meaningful Use Info Meaningful Use Diagnoses (Choose all that apply): None applicable Discharge Plan Admission Admit Date/Time: 01/25/24 00:19 Primary Reason for Your Visit: COPD exacerbation Attending Provider: Jackeline Bernal Primary Care Provider: Niurka Duarte Consulting Providers: Soham Candelaria Instructions Patient Instructions: COPD: Using Inhalers, COPD Meds Discharge Orders/Prescriptions Prescriptions: New prednisone 20 mg tablet 40 mg PO DAILY Qty: 10 0RF Combivent Respimat 20-100 mcg/actuation mist 1 puff inhalation Q6H Qty: 4 1RF Continued amlodipine 10 mg tablet 10 mg PO DAILY losartan 100 mg tablet 100 mg PO DAILY pravastatin [Pravachol] 80 mg tablet 80 mg PO QHS aspirin [Adult Aspirin Regimen] 81 mg tablet,delayed release (DR/EC) 81 mg PO DAILY Hold Instructions: pt has not been taking sildenafil 100 mg tablet 100 mg PO DAILY PRN (Reason: sexual activity) Hold Instructions: not currently taking Patient Comments: take as directed once daily if needed hydralazine 50 mg tablet 50 mg PO DAILY Patient Comments: TAKE 1 TABLET BY MOUTH EVERY MORNING icosapent ethyl 1 gram capsule 2 g PO BID tizanidine 4 mg tablet 4 mg PO BID PRN (Reason: muscle spasticity) fenofibrate nanocrystallized 145 MG tablet 145 mg PO DAILY Patient Comments: CHOLESTEROL hydrochlorothiazide 25 mg tablet 25 mg PO DAILY Qty: 90 3RF Referrals / Follow Up: Amado Gama DO [Med Staff - Active Staff] - Within 2 Weeks Niurka Duarte DO [Primary Care Provider] - Within 1 Week Disposition Disposition (needs filled in before D/C Order can be placed): Home, Self Care Charges/Coding Visit Charges Inpatient E&M: 26473 Disch Hosp >30min
== END 2024-01-27 11:03 | disposition home or self-care (01) | DRG 192 ==
LOC: ED 23:36 → MS3 01-25 00:42
PROVIDERS: Admitting Provider Internal Medicine; Emergency Provider Emergency Medicine; PCP Internal Medicine; Visit Provider Student in an Organized Health Care Education/Training Program
DX: J44.1 Chronic obstructive pulmonary disease with (acute) exacerbation (principal); E66.9 Obesity, unspecified; I73.9 Peripheral vascular disease, unspecified; I10 Essential (primary) hypertension; I25.10 Atherosclerotic heart disease of native coronary artery without angina pectoris; E78.5 Hyperlipidemia, unspecified; J06.9 Acute upper respiratory infection, unspecified; M62.838 Other muscle spasm; Z87.891 Personal history of nicotine dependence; Z68.31 Body mass index [BMI] 31.0-31.9, adult; N52.9 Male erectile dysfunction, unspecified; M94.0 Chondrocostal junction syndrome [Tietze]; Z79.899 Other long term (current) drug therapy; Z79.82 Long term (current) use of aspirin; R06.89 Other abnormalities of breathing; N40.0 Benign prostatic hyperplasia without lower urinary tract symptoms; R79.89 Other specified abnormal findings of blood chemistry
CPT/HCPCS: 36415; 71045; 80048; 80053; 82803; 83735; 84100; 84443; 84484; 85025; 87631; 93005; 94640; 94762; 97162; 97802; 99284; J7030; A4216; J2405

== ENCOUNTER → 2024-03-07 | Outpatient (CLI) | payer MEDICARE, BC, SELFPAY ==
--- NOTE | 2024-03-07 13:41 | CT_ITS ---
STUDY: LOW DOSE CT LUNG CANCER SCREENING REASON FOR EXAM: Male, 78 years old. Tobacco Dependency. 1ppd x 60 years RADIATION DOSAGE (If Supplied By Facility): CTDIvol = ( 3.02 ) mGy, DLP = ( 110.23 ) mGycm TECHNIQUE: No contrast was administered. Low dose technique was utilized (average mAS-38 and kVp 120). 1.25 mm axial source images with a slice interval of 1.25-mm were reconstructed in lung windows. 1.2 mm coronal sagittal reformats. COMPARISON: May 12, 2022, September 27, 2019 NODULES: [2 mm posterior right upper lobe nodule axial image 67, 3 mm lateral right lower lobe nodule axial image 158, 3 mm superior segment right lower lobe nodule axial image 115, 3mm left apical nodule axial image 58 Parenchyma: No consolidation, effusion, or pneumothorax. Endobronchial lesion: Mild dependent debris in the right mainstem bronchus. Mild peribronchial thickening. No endobronchial mass. Aorta: Aortic atherosclerosis without ectasia or intramural hematoma. Heart: No cardiomegaly. No pericardial effusion. Severe calcified coronary atherosclerosis. Pulmonary artery: Unremarkable pulmonary arteries for noncontrast exam. Mediastinal nodes: No mediastinal or hilar adenopathy. Other chest and abdominal: Unremarkable thyroid. Unremarkable mediastinum. Left adrenal 2.3 cm low-density lipid rich adenoma. Colonic diverticula without evidence of diverticulitis. CT/Low Dose CT Lung Screening IMPRESSION: Scattered bilateral 2-3 mm nodules without significant change from September 27, 2019. No suspicious pulmonary nodules. Mild bilateral peribronchial thickening with minimal endobronchial debris as can be seen with bronchitis/bronchiolitis. 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 Lung-RADS category 2 - Continue annual screening with LDCT in 12 months. IMPORTANT NOTES FOR USE: ACR Lung-RADS Version 1.1 Assessment Categories Release Date: 2018 Category: Coded 0-4 bases on nodule(s) with highest degree of suspicion. Negative screen is defined as categories 1 and 2; a positive screen is defined as categories 3 and 4. Category 3 and 4A nodules that are unchanged on interval CT should be coded as category 2, and individuals returned to screening in 12 months. Category 4X: Category 3 or 4 nodules with additional imaging findings that increase the suspicion of lung cancer, such as spiculation, GGN that doubles in size in 1 year, enlarged lymph notes, etc. Category Modifiers: S (significant finding unrelated to lung cancer) Electronically Signed: Mark Rowe MD at 4:46 EDT ,
== END | disposition home or self-care (01) ==
LOC: CT 13:40
PROVIDERS: PCP Internal Medicine; Referring Provider Internal Medicine Critical Care Medicine; Visit Provider Internal Medicine Critical Care Medicine
DX: F17.211 Nicotine dependence, cigarettes, in remission (principal)
CPT/HCPCS: 71271

== ENCOUNTER → 2024-03-14 | Outpatient (CLI) | payer MEDICARE, BC, SELFPAY | END | disposition home or self-care (01) | LOC: PSN 12:32 | PROVIDERS: PCP Internal Medicine; Referring Provider Internal Medicine Critical Care Medicine; Visit Provider Internal Medicine Critical Care Medicine | DX: F17.211 Nicotine dependence, cigarettes, in remission (principal) | CPT/HCPCS: 94060; 94726; 94729 ==

== ENCOUNTER → 2024-03-22 | Outpatient (CLI) | payer MEDICARE, BC, SELFPAY ==
[2024-03-22 11:39] VITALS: PULSE 77; PULSE 80; PULSE 82; PULSE 88; PULSE 89; PULSE 90; PULSE 91; O2SAT 97; O2SAT 98; O2SAT 99
--- NOTE | 2024-03-24 08:45 | WT_ITS ---
PSN 6 Minute Walk Test 6 Minute Walk Test 6 Minute Walk Test: 6 Minute Walk Test PSN:6-Minute Walk Test Start: 03/22/24 11:39 Freq: Status: Active Protocol: [id number] Document 03/22/24 11:39 [facility] (Rec: 03/22/24 11:44 [facility] [id number]) 6 Minute Walk Test Date Performed 03/22/24 Time Performed 11:15 Height 5 ft 6.5 in Weight: 172 lb Weight in Pounds 172.[address]: Amado Gama Assistive device used: None Pre-test Oxygen Delivery Method Room Air Pulse Ox (%) 99 Pulse Rate (60-100 beats/min) 77 Dyspnea Promise Scale (0-10) 0 1st minute Oxygen Delivery Method Room Air Pulse Ox (%) 97 Pulse Rate (60-100 beats/min) 82 Dyspnea Promise Scale (0-10) 0 Number of Rests Taken 0 2nd minute Oxygen Delivery Method Room Air Pulse Ox (%) 98 Pulse Rate (60-100 beats/min) 88 Dyspnea Promise Scale (0-10) 1 Number of Rests Taken 0 3rd minute Oxygen Delivery Method Room Air Pulse Ox (%) 98 Pulse Rate (60-100 beats/min) 90 Dyspnea Promise Scale (0-10) 1 Number of Rests Taken 0 4th minute Oxygen Delivery Method Room Air Pulse Ox (%) 98 Pulse Rate (60-100 beats/min) 89 Dyspnea Promise Scale (0-10) 1 Number of Rests Taken 0 5th minute Oxygen Delivery Method Room Air Pulse Ox (%) 98 Pulse Rate (60-100 beats/min) 91 Dyspnea Promise Scale (0-10) 2 Number of Rests Taken 0 6th minute Oxygen Delivery Method Room Air Pulse Ox (%) 98 Pulse Rate (60-100 beats/min) 90 Dyspnea Promise Scale (0-10) 2 Number of Rests Taken 0 Post-test Oxygen Delivery Method Room Air Pulse Ox (%) 98 Pulse Rate (60-100 beats/min) 80 Dyspnea Promise Scale (0-10) 0 Full Laps Walked 18 Partial Lap, Number of Tiles Walked 32 Total Distance Walked (ft) 1094 Interpretation Interpretation: The patient ambulated 1094 feet over the course of 6 minutes beginning on room air without assistive devices. Pretesting oxygen saturation was noted to be 99% on room air. With ambulation, the yamil oxygen saturation was 97%. There was no significant exertional oxygen desaturation. Recommendations Recommendations: There is no indication for the use of supplemental oxygen at this time.
== END | disposition home or self-care (01) ==
LOC: PSN 11:03
PROVIDERS: PCP Internal Medicine; Referring Provider Internal Medicine Critical Care Medicine; Visit Provider Internal Medicine Critical Care Medicine
DX: F17.211 Nicotine dependence, cigarettes, in remission (principal)
CPT/HCPCS: 94618

== ENCOUNTER → 2024-12-02 | Outpatient (CLI) | payer MEDICARE, BC, SELFPAY | END | disposition home or self-care (01) | LOC: LABSPEC 11:47 | PROVIDERS: PCP Internal Medicine; Referring Provider Nurse Practitioner Family; Visit Provider Nurse Practitioner Family | DX: R50.9 Fever, unspecified (principal) | CPT/HCPCS: 87631 ==

== ENCOUNTER → 2025-03-18 | Outpatient (CLI) | payer MEDICARE, BC, SELFPAY ==
--- NOTE | 2025-03-18 09:45 | CT_ITS ---
PROCEDURE: LOW DOSE CT LUNG SCREENING 03/18/2025 REASON FOR EXAM: SMOKING HISTORY TECHNIQUE: Low Dose CT Lung screening without contrast. Coronal and Sagittal reconstruction series were provided. One or more dose reduction techniques were used (e.g., Automated exposure control, adjustment of the mA and/or kV according to patient size, use of iterative reconstruction technique). REFERENCE LINK: [employer] Lung-RADS RADIATION DOSE SUMMARY: CTDlvol: 4.02 MGy DLP: 149 mGycm COMPARISON: None. FINDINGS: PULMONARY NODULES: (Only nodules >3mm are reported) Nodules described below are on series 2 unless otherwise specified. Pulmonary Nodules: 6 mm nodule in the left lower lobe. 5 mm nodule in the right lower lobe. Normal unenhanced main pulmonary artery and right and left pulmonary arteries. Normal bilateral peripheral pulmonary arteries. Normal thoracic aorta and visualized great vessels. There is no demonstrated aortic aneurysm. Normal heart and pericardium. Normal mediastinum. Normal hilar regions. Normal visualized trachea and thickened bronchi. Normal pleura. Normal visualized upper abdomen. CT/Low Dose CT Lung Screening IMPRESSION: 6 mm nodule in the left lower lobe. 5 mm nodule in the right lower lobe. Coronary artery calcification (CAC) is is present Lung-RADS Category: 3 PROBABLY BENIGN (BASED ON IMAGING FEATURES OR BEHAVIOR). RECOMMEND 6 MONTH LDCT. Reading [facility]
== END | disposition home or self-care (01) ==
LOC: CT 09:42
PROVIDERS: PCP Internal Medicine; Referring Provider Nurse Practitioner Acute Care; Visit Provider Nurse Practitioner Acute Care
DX: F17.211 Nicotine dependence, cigarettes, in remission (principal)
CPT/HCPCS: 71271

== ENCOUNTER → 2025-09-20 | Outpatient (CLI) | payer MEDICARE, BC, SELFPAY ==
--- NOTE | 2025-09-20 12:41 | CT_ITS ---
PROCEDURE: CHEST WITHOUT CONTRAST 09/20/2025 REASON FOR EXAM: 6MM LLL NODULE, 5 MM RLL NODULE, SMOKING HISTORY TECHNIQUE: Chest CT without contrast. Coronal and Sagittal reconstruction series were provided. One or more dose reduction techniques were used (e.g., Automated exposure control, adjustment of the mA and/or kV according to patient size, use of iterative reconstruction technique RADIATION DOSE SUMMARY: CTDlvol: 9.17 mGy DLP: 339.5 mGycm COMPARISON: Prior study dated March 18, 2025. FINDINGS: Mildly enlarged heterogeneous appearance of the thyroid gland suggestive of goiter is changes. This is unchanged. Hardware: None Lymph nodes: Stable small benign-appearing bilateral axillary and small fat containing mediastinal lymph nodes. Heart and Vasculature: The heart is nonenlarged. Mild degree of anterior pericardial thickening. Atherosclerotic calcifications of the thoracic aorta. Thoracic aorta and pulmonary arteries have normal contours; noncontrast technique limits evaluation. Coronary Artery Calcifications: Present Lungs and Airways: Mild emphysematous changes are present. Stable 5 mm noncalcified nodule in the superior posterior segment of the left upper lobe as seen on axial image number 26. Stable 5 mm noncalcified nodule in the peripheral lateral aspect of the right lower lobe as seen on axial image number 88. Stable 5 mm noncalcified nodule in the peripheral lateral aspect of the left lower lobe as seen on axial image number 93 Pleura: No pleural effusion. Upper Abdomen: Atherosclerotic calcification of the abdominal aorta and visceral branches. There is a 1.8 cm well-defined hypodense nodule in the left adrenal gland suggestive of a small adenoma. Bones: Degenerative changes of the thoracic spine. CT/Chest without Contrast IMPRESSION: Coronary artery calcification (CAC) is is present Stable examination. 12 month follow-up recommended. Reading Location: [id number]
== END | disposition home or self-care (01) ==
LOC: CT 12:41
PROVIDERS: PCP Internal Medicine; Referring Provider Nurse Practitioner Family; Visit Provider Nurse Practitioner Family
DX: R91.8 Other nonspecific abnormal finding of lung field (principal); Z87.891 Personal history of nicotine dependence
CPT/HCPCS: 71250